=== PATIENT | female | born 1990 | race Caucasian/White ===

== ENCOUNTER 2018-08-18 16:50 | Emergency (ER) | payer MEDICAID, OTHER ==
[~2018-08-18] VITALS: Ht 162.6 cm; Wt 42.6 kg
[2018-08-18 17:34] LABS: Basophils # (auto) 0 uL; Basophils % (auto) 0.6 % (0.0-2.0); Eosinophils # (auto) 0.2 uL; Eosinophils % (auto) 6.4 % (0.0-7.0); Hematocrit 32.2 % (36.0-46.0); Hemoglobin 10.3 g/dL (12.2-16.2); Lymphocytes # (auto) 1.3 uL; Lymphocytes % (auto) 34.5 % (10.0-50.0); Mean Corpuscular Hemoglobin 25.7 pg (28.0-32.0); Mean Corpuscular Hgb Conc. 31.9 g/dL (32.0-36.0); Mean Corpuscular Volume 80.6 fL (80.0-100.0); Monocytes # (auto) 0.3 uL; Monocytes % (auto) 7.2 % (0.0-12.0); Neutrophils # (auto) 1.9 uL; Neutrophils % (auto) 51.3 % (37.0-80.0); Nucleated Red Blood Cells % 0.1 %; Platelet Count (auto) 307 10^3/uL (140-450); Red Blood Cells 3.99 10^6/uL (4.0-5.20); Red Cell Distribution Width 15.1 % (11.8-14.3); White Blood Cell 3.8 10^3/uL (4.4-10.8)
[2018-08-18 17:45] LABS: Albumin 4.1 g/dL (3.4-5.0); Calcium 8.8 mg/dL (8.5-10.1); Potassium 3.4 mmol/L (3.5-5.1)
[2018-08-18 17:50] LABS: Bilirubin, Total 0.2 mg/dL (0.2-1.0); Total Protein 7.3 g/dL (6.4-8.2)
[2018-08-18] MEDS ORDERED: LORazepam 2MG/ML-1ML VIAL IV ONE (19:00)
[2018-08-18] MEDS ORDERED: SODIUM CHLORIDE 0.9% 1,000 ML IV ONE (19:00)
[2018-08-18] MEDS ORDERED: diphenhdrAMINE HCL 50 MG/1 ML VL IV ONE (19:00)
[2018-08-18] MEDS ORDERED: methylPREDNISolone SOD SUCC 125 MG/2 ML VL IV ONE (19:00)
[2018-08-18 19:51] VITALS: BP 99/60
[2018-08-18 20:13] LABS: Urine Bacteria NONE SEEN /hpf (None Seen); Urine Blood 1+ /uL (Negative); Urine Specific Gravity 1.007 (1.001-1.035); Urine WBC 1 /hpf (0 - 5)
[2018-08-18 20:53] LABS: Alcohol, Urine < 3.0 mg/dL (0-5); Amphetamine Screen, Urine NEGATIVE (NEGATIVE); Barbiturate Scree,Urine NEGATIVE (NEGATIVE); Benzodiazephine Screen, Urine NEGATIVE (NEGATIVE); Cannabinoid Screen, Urine NEGATIVE (NEGATIVE); Cocaine Screen, Urine NEGATIVE (NEGATIVE); Opiate Scree,Urine NEGATIVE (NEGATIVE); Phencyclidine Screen, Urine NEGATIVE (NEGATIVE)
== END 2018-08-18 21:42 | disposition home or self-care (01) ==
LOC: ER 16:56
DX: T78.40XA Allergy, unspecified, initial encounter (principal); R55 Syncope and collapse; X58.XXXA Exposure to other specified factors, initial encounter
CPT/HCPCS: 36415; 80053; 80307; 81001; 81025; 85025; 85652; 86141; 96361; 96374; 96375; 99283; J1200; J2060; J2930; J7030

== ENCOUNTER 2020-05-19 11:08 | Observation (INO) | payer MEDICAID ==
[~2020-05-19] VITALS: Ht 162.6 cm; Wt 45.8 kg
[2020-05-19] MEDS ORDERED: LACTATED RINGER'S 1,000 ML IV ONE (11:45)
[2020-05-19] MEDS ORDERED: TERBUTALINE SULFATE 1 MG/ML 1ML VIAL SC ONE (11:47)
[2020-05-19] MEDS: TERBUTALINE SULFATE 1 MG/ML 1ML VIAL SC SCH ×2 (12:20→13:21)
[2020-05-19 12:23] LABS: Amphetamine Screen, Urine NEGATIVE (NEGATIVE); Barbiturate Scree,Urine NEGATIVE (NEGATIVE); Benzodiazephine Screen, Urine NEGATIVE (NEGATIVE); Cannabinoid Screen, Urine NEGATIVE (NEGATIVE); Cocaine Screen, Urine NEGATIVE (NEGATIVE); Opiate Scree,Urine NEGATIVE (NEGATIVE); Phencyclidine Screen, Urine NEGATIVE (NEGATIVE)
[2020-05-19] MEDS ORDERED: LACTATED RINGER'S 1,000 ML IV SCH (13:15)
[2020-05-19 13:43] LABS: Basophils # (auto) 0 10 ^3/uL (0-0.2); Basophils % (auto) 0.3 % (0.0-2.0); Eosinophils # (auto) 0 10 ^3/uL (0-0.8); Monocytes # (auto) 0.3 10 ^3/uL (0-1.3)
[2020-05-19 13:45] LABS: Eosinophils % (auto) 0.2 % (0.0-7.0); Hemoglobin 8.6 g/dL (12.2-16.2); Lymphocytes % (auto) 16.6 % (10.0-50.0); Mean Corpuscular Hemoglobin 27.3 pg (28.0-32.0); Mean Corpuscular Volume 82.6 fL (80.0-100.0); Monocytes % (auto) 4.4 % (0.0-12.0); Neutrophils # (auto) 4.8 10 ^3/uL (1.6-8.6); Neutrophils % (auto) 78.5 % (37.0-80.0); Red Blood Cells 3.14 10^6/uL (4.0-5.20); Red Cell Distribution Width 15.2 % (11.8-14.3); White Blood Cell 6.1 10^3/uL (4.4-10.8)
[2020-05-19 14:02] LABS: Albumin 2.8 g/dL (3.4-5.0); Calcium 8.2 mg/dL (8.5-10.1)
[2020-05-19 14:08] LABS: Bilirubin, Total 0.2 mg/dL (0.2-1.0); Total Protein 6.2 g/dL (6.4-8.2)
[2020-05-19 14:10] LABS: BUN/Creatinine Ratio 8.3; Potassium 2.8 mmol/L (3.5-5.1)
[2020-05-19] MEDS ORDERED: POTASSIUM CHL 20 Meq TABLET PO ONE (14:30)
[2020-05-19] MEDS: POTASSIUM CHL 20MEQ/100ML 100 ML IV SCH ×2 (14:52→16:59)
[2020-05-19] MEDS ORDERED: PREN-96 PO (19:26)
[2020-05-25] MEDS ORDERED: FERR-7 PO (12:59)
== END 2020-05-19 19:47 | disposition home or self-care (01) ==
LOC: LDRP 11:08
PROVIDERS: ADMIT Obstetrics & Gynecology; ATTEND Obstetrics & Gynecology
DX: O62.9 Abnormality of forces of labor, unspecified (principal); O26.893 Other specified pregnancy related conditions, third trimester; R11.0 Nausea; O99.343 Other mental disorders complicating pregnancy, third trimester; F41.9 Anxiety disorder, unspecified; F50.2 Bulimia nervosa; Z3A.30 30 weeks gestation of pregnancy
CPT/HCPCS: 36415; 59025; 76815; 76817; 80053; 80307; 81002; 85025; 94760; 96360; 96361; 96372; G0378; J3105; J3480; 96365; 96366

== ENCOUNTER 2020-05-25 11:16 | Observation (INO) | payer MEDICAID ==
[~2020-05-25 11:16] MED LIST: PREN-96 PO
[2020-05-25] MEDS ORDERED: FERR-7 PO ×2 (12:59)
== END 2020-05-25 13:20 | disposition home or self-care (01) ==
LOC: LDRP 11:16
PROVIDERS: ADMIT Specialist; ATTEND Specialist
DX: O36.5930 Maternal care for other known or suspected poor fetal growth, third trimester, not applicable or unspecified (principal); O99.343 Other mental disorders complicating pregnancy, third trimester; F50.9 Eating disorder, unspecified; Z3A.31 31 weeks gestation of pregnancy
CPT/HCPCS: 59025; 76818; 81002; G0378

== ENCOUNTER 2020-05-29 12:05 | Observation (INO) | payer MEDICAID ==
[~2020-05-29 12:05] MED LIST changes: +FERR-7 PO
== END 2020-05-29 13:08 | disposition home or self-care (01) ==
LOC: LDRP 12:05
PROVIDERS: ADMIT Obstetrics & Gynecology; ATTEND Obstetrics & Gynecology
DX: O26.893 Other specified pregnancy related conditions, third trimester (principal); R63.0 Anorexia; O34.63 Maternal care for abnormality of vagina, third trimester; N89.8 Other specified noninflammatory disorders of vagina; O99.323 Drug use complicating pregnancy, third trimester; F12.90 Cannabis use, unspecified, uncomplicated; Z79.899 Other long term (current) drug therapy; Z3A.31 31 weeks gestation of pregnancy
CPT/HCPCS: 59025; 76818; 81002; G0378

== ENCOUNTER 2020-06-03 12:08 | Observation (INO) | payer MEDICAID ==
[~2020-06-03] VITALS: Ht 162.6 cm; Wt 46.3 kg
[2020-06-03] MEDS ORDERED: BETAMETHASONE ACET (6MG/ML) 5ML VIAL IM SCH (13:30)
[2020-06-03] MEDS ORDERED: TERBUTALINE SULFATE 1 MG/ML 1ML VIAL SC SCH (14:00)
[2020-06-03 14:27] LABS: Potassium 3.4 mmol/L (3.5-5.1)
[2020-06-03 14:29] LABS: BUN/Creatinine Ratio 12.8
== END 2020-06-03 14:56 | disposition home or self-care (01) ==
LOC: LDRP 12:08
PROVIDERS: ADMIT Obstetrics & Gynecology; ATTEND Obstetrics & Gynecology
DX: O60.03 Preterm labor without delivery, third trimester (principal); O99.323 Drug use complicating pregnancy, third trimester; F12.90 Cannabis use, unspecified, uncomplicated; Z3A.32 32 weeks gestation of pregnancy
CPT/HCPCS: 36415; 59025; 80048; 81002; 96372; G0378; J0702; J3105

== ENCOUNTER 2020-06-04 00:09 | Observation (INO) | payer MEDICAID ==
[~2020-06-04] VITALS: Ht 162.6 cm; Wt 46.3 kg
[2020-06-04] MEDS: TERBUTALINE SULFATE 1 MG/ML 1ML VIAL SC SCH ×3 (01:37→02:42)
[2020-06-04] MEDS ORDERED: LACTATED RINGER'S 1,000 ML IV ONE (02:30)
[2020-06-04] MEDS ORDERED: BETAMETHASONE ACET (6MG/ML) 5ML VIAL IM SCH (04:00)
== END 2020-06-04 04:50 | disposition home or self-care (01) ==
LOC: LDRP 00:09
PROVIDERS: ADMIT Obstetrics & Gynecology; ATTEND Obstetrics & Gynecology
DX: O60.03 Preterm labor without delivery, third trimester (principal); O26.873 Cervical shortening, third trimester; O99.323 Drug use complicating pregnancy, third trimester; F12.90 Cannabis use, unspecified, uncomplicated; Z3A.32 32 weeks gestation of pregnancy; Z79.899 Other long term (current) drug therapy
CPT/HCPCS: 59025; 76818; 81002; 82948; 82962; 84112; 94760; 96360; 96361; 96372; G0378; J0702; J3105

== ENCOUNTER 2020-06-08 09:25 | Observation (INO) | payer MEDICAID | END 2020-06-08 10:45 | disposition home or self-care (01) | LOC: LDRP 09:25 | PROVIDERS: ADMIT Obstetrics & Gynecology; ATTEND Obstetrics & Gynecology | DX: O26.893 Other specified pregnancy related conditions, third trimester (principal); F50.00 Anorexia nervosa, unspecified; O36.5930 Maternal care for other known or suspected poor fetal growth, third trimester, not applicable or unspecified; Z3A.33 33 weeks gestation of pregnancy; Z98.891 History of uterine scar from previous surgery; Z79.899 Other long term (current) drug therapy | CPT/HCPCS: 59025; 76818; 81002; G0378 ==

== ENCOUNTER 2020-06-15 09:15 | Observation (INO) | payer MEDICAID ==
[~2020-06-15] VITALS: Ht 162.6 cm; Wt 46.3 kg
== END 2020-06-15 11:40 | disposition home or self-care (01) ==
LOC: LDRP 09:15
PROVIDERS: ADMIT Obstetrics & Gynecology; ATTEND Obstetrics & Gynecology
DX: O60.03 Preterm labor without delivery, third trimester (principal); Z3A.34 34 weeks gestation of pregnancy
CPT/HCPCS: 59025; 76818; 81002; G0378

== ENCOUNTER 2020-06-18 09:16 | Observation (INO) | payer MEDICAID | END 2020-06-18 10:44 | disposition home or self-care (01) | LOC: LDRP 09:16 | PROVIDERS: ADMIT Obstetrics & Gynecology; ATTEND Obstetrics & Gynecology | DX: O60.03 Preterm labor without delivery, third trimester (principal); O34.219 Maternal care for unspecified type scar from previous cesarean delivery; Z3A.34 34 weeks gestation of pregnancy | CPT/HCPCS: 59025; 76818; 81002; G0378 ==

== ENCOUNTER 2020-06-21 02:57 | Observation (INO) | payer MEDICAID ==
[~2020-06-21] VITALS: Ht 162.6 cm; Wt 46.3 kg
[2020-06-21] MEDS ORDERED: LACTATED RINGER'S 1,000 ML IV SCH (03:15)
[2020-06-21] MEDS ORDERED: LACTATED RINGER'S 1,000 ML IV ONE (03:15)
[2020-06-21] MEDS: TERBUTALINE SULFATE 1 MG/ML 1ML VIAL SC SCH ×2 (03:43→04:05)
[2020-06-21 06:44] LABS: Alcohol, Urine < 3.0 mg/dL (0-10); Amphetamine Screen, Urine NEGATIVE (NEGATIVE); Barbiturate Scree,Urine NEGATIVE (NEGATIVE); Benzodiazephine Screen, Urine NEGATIVE (NEGATIVE); Cannabinoid Screen, Urine NEGATIVE (NEGATIVE); Cocaine Screen, Urine NEGATIVE (NEGATIVE); Opiate Scree,Urine NEGATIVE (NEGATIVE); Phencyclidine Screen, Urine NEGATIVE (NEGATIVE)
[2020-06-21] MEDS ORDERED: NIFEdipine 10 MG CAP PO ONE (07:00)
[2020-06-21] MEDS ORDERED: NIF10C PO (08:21)
== END 2020-06-21 08:45 | disposition home or self-care (01) ==
LOC: UNDOADMOB 02:57 → LDRP 02:57 → UNDODISOB 08:45
PROVIDERS: ADMIT Obstetrics & Gynecology; ATTEND Obstetrics & Gynecology
DX: O62.9 Abnormality of forces of labor, unspecified (principal); Z3A.35 35 weeks gestation of pregnancy; Z79.899 Other long term (current) drug therapy
CPT/HCPCS: 59025; 76805; 80307; 81002; 96360; 96361; 96372; G0378; J3105; 94640

== ENCOUNTER 2020-06-25 09:22 | Observation (INO) | payer MEDICAID ==
[~2020-06-25 09:22] MED LIST changes: +NIF10C PO
[2020-06-25] MEDS ORDERED: TERBUTALINE SULFATE 1 MG/ML 1ML VIAL SC ONE (10:52)
[2020-06-25] MEDS ORDERED: TERBUTALINE SULFATE 1 MG/ML 1ML VIAL SC SCH (11:00)
== END 2020-06-25 11:49 | disposition home or self-care (01) ==
LOC: LDRP 09:22
PROVIDERS: ADMIT Obstetrics & Gynecology; ATTEND Obstetrics & Gynecology
DX: O60.03 Preterm labor without delivery, third trimester (principal); O99.343 Other mental disorders complicating pregnancy, third trimester; R63.0 Anorexia; Z3A.35 35 weeks gestation of pregnancy
CPT/HCPCS: 59025; 76818; 81002; 84112; 96372; G0378; J3105; Q0114

== ENCOUNTER 2020-06-27 18:27 | Observation (INO) | payer MEDICAID ==
[2020-06-27] MEDS ORDERED: LACTATED RINGER'S 1,000 ML IV ONE (19:15)
[2020-06-27] MEDS ORDERED: LACTATED RINGER'S 1,000 ML IV SCH (19:15)
[2020-06-27] MEDS ORDERED: TERBUTALINE SULFATE 1 MG/ML 1ML VIAL SC ONE (19:15)
[2020-06-27] MEDS: TERBUTALINE SULFATE 1 MG/ML 1ML VIAL SC SCH ×3 (19:17→20:17)
== END 2020-06-27 21:35 | disposition home or self-care (01) ==
LOC: LDRP 18:27
PROVIDERS: ADMIT Obstetrics & Gynecology; ATTEND Obstetrics & Gynecology
DX: O60.03 Preterm labor without delivery, third trimester (principal); Z98.891 History of uterine scar from previous surgery; Z3A.35 35 weeks gestation of pregnancy; Z79.899 Other long term (current) drug therapy
CPT/HCPCS: 59025; 76815; 81002; 94760; 96360; 96361; 96372; G0378; J3105

== ENCOUNTER 2020-07-03 01:50 | Observation (INO) | payer MEDICAID ==
[~2020-07-03] VITALS: Ht 162.6 cm; Wt 48.5 kg
[2020-07-03] MEDS ORDERED: TERBUTALINE SULFATE 1 MG/ML 1ML VIAL SC SCH (02:00)
[2020-07-03] MEDS ORDERED: LACTATED RINGER'S 1,000 ML IV ONE (02:00)
[2020-07-03] MEDS ORDERED: LACTATED RINGER'S 1,000 ML IV SCH (02:00)
[2020-07-03] MEDS ORDERED: NIFEdipine 10 MG CAP PO ONE (03:00)
[2020-07-03] MEDS ORDERED: NIFEdipine 10 MG CAP ONE (03:10)
== END 2020-07-03 04:09 | disposition home or self-care (01) ==
LOC: LDRP 01:50
PROVIDERS: ADMIT Obstetrics & Gynecology; ATTEND Obstetrics & Gynecology
DX: O62.9 Abnormality of forces of labor, unspecified (principal); Z3A.36 36 weeks gestation of pregnancy
CPT/HCPCS: 59025; 81002; 96360; 96361; 96372; G0378; J3105

== ENCOUNTER 2020-07-06 22:30 | Observation (INO) | payer MEDICAID | END 2020-07-07 01:05 | disposition home or self-care (01) | LOC: LDRP 22:30 | PROVIDERS: ADMIT Specialist; ATTEND Specialist | DX: O62.9 Abnormality of forces of labor, unspecified (principal); Z3A.37 37 weeks gestation of pregnancy | CPT/HCPCS: 59025; 81002; G0378 ==

== ENCOUNTER 2020-07-15 06:03 | Observation (INO) | payer MEDICAID ==
[~2020-07-15 06:03] MED LIST changes: -NIF10C PO
[2020-07-15] MEDS ORDERED: LACTATED RINGER'S 1,000 ML IV ONE (07:00)
== END 2020-07-15 08:46 | disposition home or self-care (01) ==
LOC: LDRP 06:03
PROVIDERS: ADMIT Obstetrics & Gynecology; ATTEND Obstetrics & Gynecology
DX: O62.9 Abnormality of forces of labor, unspecified (principal); O34.219 Maternal care for unspecified type scar from previous cesarean delivery; Z3A.38 38 weeks gestation of pregnancy
CPT/HCPCS: 59025; 81002; 96360; G0378

== ENCOUNTER 2020-07-16 02:21 | Inpatient (IN) | payer MEDICAID ==
[~2020-07-16] VITALS: Ht 162.6 cm; Wt 49.4 kg
[2020-07-16] VITALS (18 sets, daily range): BP systolic 91–109; BP diastolic 52–66
[2020-07-16] MEDS ORDERED: LACTATED RINGER'S 1,000 ML IV SCH ×2 (02:45→08:45)
[2020-07-16] MEDS ORDERED: LACTATED RINGER'S 1,000 ML IV ONE (02:45)
[2020-07-16] MEDS ORDERED: SODIUM CITR/CITRIC ACID ORAL SOLN 30 ML PO ONE (02:45)
[2020-07-16] MEDS ORDERED: METOCLOPRAMIDE HCL 5MG/ml INJ 2ml VIAL IV ONE (02:45)
[2020-07-16] MEDS ORDERED: ceFAZolin 1GM/50ML 50 ML IV ONE (03:15)
[2020-07-16] MEDS ORDERED: TERBUTALINE SULFATE 1 MG/ML 1ML VIAL SC ONE (04:15)
[2020-07-16 04:27] LABS: Basophils # (auto) 0 10 ^3/uL (0-0.2); Eosinophils # (auto) 0.1 10 ^3/uL (0-0.8); Eosinophils % (auto) 1.2 % (0.0-7.0); Lymphocytes # (auto) 1.3 10 ^3/uL (0.4-5.4); Monocytes # (auto) 0.5 10 ^3/uL (0-1.3); Red Cell Distribution Width 16.4 % (11.8-14.3)
[2020-07-16 04:28] LABS: Basophils % (auto) 0.5 % (0.0-2.0); Hematocrit 24.5 % (36.0-46.0); Hemoglobin 8.1 g/dL (12.2-16.2); Lymphocytes % (auto) 22.1 % (10.0-50.0); Mean Corpuscular Hemoglobin 25.8 pg (28.0-32.0); Mean Corpuscular Hgb Conc. 32.8 g/dL (32.0-36.0); Mean Corpuscular Volume 78.4 fL (80.0-100.0); Monocytes % (auto) 8.4 % (0.0-12.0); Neutrophils % (auto) 67.8 % (37.0-80.0); Nucleated Red Blood Cells % 0.1 %; Platelet Count (auto) 192 10^3/uL (140-450); Red Blood Cells 3.13 10^6/uL (4.0-5.20); White Blood Cell 5.9 10^3/uL (4.4-10.8)
[2020-07-16 04:38] LABS: Albumin 2.4 g/dL (3.4-5.0); Calcium 8.2 mg/dL (8.5-10.1); Potassium 3.8 mmol/L (3.5-5.1)
[2020-07-16 04:41] LABS: Bilirubin, Total 0.2 mg/dL (0.2-1.0); Total Protein 5.8 g/dL (6.4-8.2)
[2020-07-16 04:44] LABS: INR 0.93 (0.9-1.15); Partial Thromboplastin Time 27.8 sec (23.0-31.2)
[2020-07-16 04:54] LABS: Urine Bacteria FEW /hpf (None Seen); Urine Blood 2+ /uL (Negative); Urine Specific Gravity 1.008 (1.001-1.035); Urine WBC 1 /hpf (0 - 5)
[2020-07-16] MEDS ORDERED: DERMOPLAST 60ML BOTTLE TOP ONE (05:03)
[2020-07-16 05:15] LABS: Alcohol, Urine < 3.0 mg/dL (0-10); Amphetamine Screen, Urine NEGATIVE (NEGATIVE); Barbiturate Scree,Urine NEGATIVE (NEGATIVE); Benzodiazephine Screen, Urine NEGATIVE (NEGATIVE); Cannabinoid Screen, Urine NEGATIVE (NEGATIVE); Cocaine Screen, Urine NEGATIVE (NEGATIVE); Opiate Scree,Urine NEGATIVE (NEGATIVE); Phencyclidine Screen, Urine NEGATIVE (NEGATIVE)
[2020-07-16] MEDS ORDERED: TETRACAINE 1% INJ 2 ML VIAL IJ ONE (07:02)
[2020-07-16] MEDS ORDERED: MORPHINE SULF(PF) 0.5MG/ML 10ML VIAL ONE (07:08)
[2020-07-16] MEDS ORDERED: oxyTOCIN 10 UNIT/ML 10ML VIAL ONE (07:24)
[2020-07-16] MEDS ORDERED: ePHEDrine SULFATE 50 MG/ML AMP IV ONE (07:31)
[2020-07-16] MEDS ORDERED: MIDAZOLAM HCL 1MG/1ML-2 ML VIAL ONE (08:16)
[2020-07-16] MEDS ORDERED: fentaNYL CITRATE 100 MCG/2 ML VL ONE (08:16)
[2020-07-16] MEDS ORDERED: ONDANSETRON HCL 4 MG/2 ML VIAL ONE (08:43)
[2020-07-16] MEDS ORDERED: GUM (CHEWING) 1 GUM CHEW CHEW ONE (08:45)
[2020-07-16] MEDS ORDERED: KETOROLAC TROMETH 30 MG/ML 1ML VIAL IV PRN (08:45)
[2020-07-16] MEDS ORDERED: HYDROmorphone HCL 2 MG/ML VL IV PRN (08:45)
[2020-07-16] MEDS ORDERED: ceFAZolin 1GM/50ML 50 ML IV SCH (08:45)
[2020-07-16] MEDS ORDERED: ONDANSETRON HCL 4 MG/2 ML VIAL IV PRN ×2 (08:45→09:00)
[2020-07-16] MEDS ORDERED: NALOXONE HCL 0.4 MG/ML VIAL IV PRN (09:00)
[2020-07-16] MEDS ORDERED: diphenhdrAMINE HCL 50 MG/1 ML VL IV PRN (09:00)
[2020-07-16] MEDS: ceFAZolin 1GM/50ML 50 ML IV SCH ×2 (15:16→21:16)
[2020-07-17] VITALS (11 sets, daily range): BP systolic 93–105; BP diastolic 55–70
[2020-07-17] MEDS: ceFAZolin 1GM/50ML 50 ML IV SCH (04:49)
[2020-07-17] MEDS ORDERED: HYDROcodone-ACET 5/325MG TAB PO PRN (07:00)
[2020-07-17] MEDS ORDERED: BISACODYL 10 MG RECT SUPP PR PRN (07:00)
[2020-07-17 07:06] LABS: RPR Non Reactive (Non Reactive)
[2020-07-17 07:27] LABS: Basophils # (auto) 0 10 ^3/uL (0-0.2); Eosinophils # (auto) 0 10 ^3/uL (0-0.8); Hemoglobin 9.2 g/dL (12.2-16.2); Neutrophils # (auto) 5.4 10 ^3/uL (1.6-8.6)
[2020-07-17 07:29] LABS: Basophils % (auto) 0.3 % (0.0-2.0); Eosinophils % (auto) 0.6 % (0.0-7.0); Hematocrit 28.3 % (36.0-46.0); Lymphocytes # (auto) 0.8 10 ^3/uL (0.4-5.4); Lymphocytes % (auto) 11.5 % (10.0-50.0); Mean Corpuscular Hemoglobin 25.4 pg (28.0-32.0); Mean Corpuscular Hgb Conc. 32.5 g/dL (32.0-36.0); Mean Corpuscular Volume 78.2 fL (80.0-100.0); Monocytes # (auto) 0.5 10 ^3/uL (0-1.3); Monocytes % (auto) 7.2 % (0.0-12.0); Neutrophils % (auto) 80.4 % (37.0-80.0); Platelet Count (auto) 186 10^3/uL (140-450); Red Blood Cells 3.61 10^6/uL (4.0-5.20); Red Cell Distribution Width 16.3 % (11.8-14.3); White Blood Cell 6.7 10^3/uL (4.4-10.8)
[2020-07-17] MEDS: DOCUSATE SOD 100 MG CAP PO SCH ×2 (08:34→21:26)
[2020-07-17] MEDS: HYDROcodone-ACET 5/325MG TAB PO PRN ×3 (08:34→18:45)
[2020-07-17] MEDS: FERROUS SULFATE 325 MG TAB PO SCH ×2 (08:34→21:27)
[2020-07-17] MEDS: SIMETHICONE 80 MG CHEWABLE TABLET PO SCH ×3 (15:52→21:27)
[2020-07-17] MEDS: IBUPROFEN 800 MG TAB PO PRN ×2 (15:52→21:27)
[2020-07-18 03:30] VITALS: BP 98/68
[2020-07-18] MEDS: HYDROcodone-ACET 5/325MG TAB PO PRN ×2 (04:55→09:37)
[2020-07-18] MEDS: SIMETHICONE 80 MG CHEWABLE TABLET PO SCH ×2 (06:41→15:01)
[2020-07-18] MEDS: IBUPROFEN 800 MG TAB PO PRN ×3 (06:42→23:49)
[2020-07-18 07:00] VITALS: BP 101/73
[2020-07-18] MEDS: DOCUSATE SOD 100 MG CAP PO SCH (09:37)
[2020-07-18] MEDS: FERROUS SULFATE 325 MG TAB PO SCH (09:37)
[2020-07-18 11:00] VITALS: BP 103/66
[2020-07-18 15:00] VITALS: BP 106/69
[2020-07-18 19:14] VITALS: BP 108/77
[2020-07-18 23:09] VITALS: BP 104/71
[2020-07-19 03:06] VITALS: BP 109/70
[2020-07-19] MEDS: HYDROcodone-ACET 5/325MG TAB PO PRN (05:01)
[2020-07-19 07:02] VITALS: BP 102/73
== END 2020-07-19 09:30 | disposition home or self-care (01) | DRG 540 ==
LOC: OBSVTOIN 02:21 → LDRP 02:21
PROVIDERS: ADMIT Specialist; ATTEND Specialist
PROC: 30233N1 Transfusion of Nonautologous Red Blood Cells into Peripheral Vein, Percutaneous Approach (ICD-10-PCS; 2020-07-16)
PROC: 10D00Z1 Extraction of Products of Conception, Low, Open Approach (ICD-10-PCS; principal; 2020-07-16 07:31)
DX: O34.211 Maternal care for low transverse scar from previous cesarean delivery (principal); Z20.822 Contact with and (suspected) exposure to COVID-19; Z37.0 Single live birth; Z3A.38 38 weeks gestation of pregnancy; Z86.59 Personal history of other mental and behavioral disorders; Z88.8 Allergy status to other drugs, medicaments and biological substances; O99.344 Other mental disorders complicating childbirth; Z91.018 Allergy to other foods; F41.9 Anxiety disorder, unspecified
CPT/HCPCS: 36415; 59025; 80053; 80307; 81001; 81002; 84112; 85025; 85610; 85730; 86592; 86850; 86900; 86901; 86920; 87426; 94760; 94762; 96360; 96361; 96374; 96375; G0378; J0690; J1885; J2250; J2405; J2590

== ENCOUNTER 2021-05-31 21:14 | Emergency (ER) | payer MEDICAID ==
[~2021-05-31] VITALS: Ht 162.6 cm; Wt 44.5 kg
[2021-05-31 23:56] LABS: Basophils # (auto) 0 10 ^3/uL (0-0.2); Eosinophils # (auto) 0 10 ^3/uL (0-0.8); Hemoglobin 10.4 g/dL (12.2-16.2); Lymphocytes # (auto) 1.2 10 ^3/uL (0.4-5.4); Monocytes # (auto) 0.3 10 ^3/uL (0-1.3); Nucleated Red Blood Cells % 0.1 %; Red Cell Distribution Width 14.7 % (11.8-14.3)
[2021-05-31 23:58] LABS: Basophils % (auto) 0.6 % (0.0-2.0); Hematocrit 32.1 % (36.0-46.0); Lymphocytes % (auto) 31.9 % (10.0-50.0); Mean Corpuscular Hemoglobin 25.9 pg (28.0-32.0); Mean Corpuscular Hgb Conc. 32.3 g/dL (32.0-36.0); Mean Corpuscular Volume 80.3 fL (80.0-100.0); Monocytes % (auto) 6.9 % (0.0-12.0); Neutrophils # (auto) 2.3 10 ^3/uL (1.6-8.6); Neutrophils % (auto) 59.6 % (37.0-80.0); White Blood Cell 3.9 10^3/uL (4.4-10.8)
[2021-06-01 00:20] LABS: Calcium 9.2 mg/dL (8.5-10.1); Potassium 3.9 mmol/L (3.5-5.1)
[2021-06-01 00:23] LABS: BUN/Creatinine Ratio 21.8
[2021-06-01 00:26] LABS: Bilirubin, Total 0.2 mg/dL (0.2-1.0)
[2021-06-01 01:59] LABS: Urine Bacteria NONE SEEN /hpf (None Seen); Urine Blood Negative /uL (Negative); Urine Specific Gravity 1.015 (1.001-1.035); Urine WBC 1 /hpf (0 - 5)
[2021-06-01 02:09] LABS: Alcohol, Urine < 3.0 mg/dL (0-10); Amphetamine Screen, Urine NEGATIVE (NEGATIVE); Barbiturate Scree,Urine NEGATIVE (NEGATIVE); Benzodiazephine Screen, Urine NEGATIVE (NEGATIVE); Cocaine Screen, Urine NEGATIVE (NEGATIVE); Opiate Scree,Urine NEGATIVE (NEGATIVE); Phencyclidine Screen, Urine NEGATIVE (NEGATIVE)
[2021-06-01 02:28] LABS: Cannabinoid Screen, Urine NEGATIVE (NEGATIVE)
[2021-06-01 02:30] VITALS: BP 97/39
== END 2021-06-01 02:32 | disposition home or self-care (01) ==
LOC: ER 21:18
DX: F41.9 Anxiety disorder, unspecified (principal); Z86.2 Personal history of diseases of the blood and blood-forming organs and certain disorders involving the immune mechanism; Z79.899 Other long term (current) drug therapy; Z91.018 Allergy to other foods
CPT/HCPCS: 36415; 80053; 80307; 81001; 81025; 84702; 85025; 93005

== ENCOUNTER 2021-07-30 16:41 | Emergency (ER) | payer MEDICAID ==
[~2021-07-30] VITALS: Ht 162.6 cm; Wt 44.5 kg
[2021-07-30] MEDS ORDERED: SODIUM CHLORIDE 0.9% 1,000 ML IV ONE (17:00)
[2021-07-30 18:02] LABS: Basophils # (auto) 0 10 ^3/uL (0-0.2); Basophils % (auto) 0.7 % (0.0-2.0); Eosinophils # (auto) 0.1 10 ^3/uL (0-0.8); Eosinophils % (auto) 1.8 % (0.0-7.0); Hemoglobin 10.6 g/dL (12.2-16.2); Lymphocytes # (auto) 1.4 10 ^3/uL (0.4-5.4); Lymphocytes % (auto) 30.8 % (10.0-50.0); Mean Corpuscular Hemoglobin 24.8 pg (28.0-32.0); Mean Corpuscular Hgb Conc. 32.1 g/dL (32.0-36.0); Mean Corpuscular Volume 77.2 fL (80.0-100.0); Monocytes # (auto) 0.3 10 ^3/uL (0-1.3); Monocytes % (auto) 7.3 % (0.0-12.0); Neutrophils # (auto) 2.7 10 ^3/uL (1.6-8.6); Neutrophils % (auto) 59.4 % (37.0-80.0); Nucleated Red Blood Cells % 0.1 %; Red Blood Cells 4.27 10^6/uL (4.0-5.20); Red Cell Distribution Width 14.8 % (11.8-14.3); White Blood Cell 4.6 10^3/uL (4.4-10.8)
[2021-07-30 18:03] LABS: Urine Bacteria NONE SEEN /hpf (None Seen); Urine Blood Negative /uL (Negative); Urine Specific Gravity 1.004 (1.001-1.035); Urine WBC 1 /hpf (0 - 5)
[2021-07-30 18:04] LABS: Alanine Aminotransferase 26 U/L (13-56); Albumin 4.1 g/dL (3.4-5.0); Anion Gap 3 (5-15); Aspartate Aminotransferase 16 U/L (15-37); BUN/Creatinine Ratio 24.2; Blood Urea Nitrogen 15 mg/dL (7-18); Calcium 8.8 mg/dL (8.5-10.1); Carbon Dioxide 27 mmol/L (21-32); Chloride 109 mmol/L (98-107); GFR African American 145 mL/min; GFR Non-African American 120 mL/min; Glucose 87 mg/dL (74-106); Potassium 3.5 mmol/L (3.5-5.1); Sodium 139 mmol/L (136-145)
[2021-07-30 18:09] LABS: Alkaline Phosphatase 47 U/L (45-117); Bilirubin, Total 0.2 mg/dL (0.2-1.0); Total Protein 7.5 g/dL (6.4-8.2)
[2021-07-30] MEDS ORDERED: MECLIZINE HCL 25 MG TAB PO ONE (18:30)
[2021-07-30] MEDS ORDERED: MECL25CH38 PO (20:49)
[2021-07-31 01:29] VITALS: BP 91/47
== END 2021-07-31 03:31 | disposition home or self-care (01) ==
LOC: EDBD 16:41 → ER 16:41
DX: F41.9 Anxiety disorder, unspecified (principal); R42 Dizziness and giddiness; Z86.2 Personal history of diseases of the blood and blood-forming organs and certain disorders involving the immune mechanism; Z79.899 Other long term (current) drug therapy; Z88.8 Allergy status to other drugs, medicaments and biological substances; Z91.018 Allergy to other foods; Z20.822 Contact with and (suspected) exposure to COVID-19
CPT/HCPCS: 36415; 70450; 80053; 81001; 83605; 84484; 84702; 85025; 87426; 93005; 96360; 96361; 99285; J7030; J8597

== ENCOUNTER 2021-09-23 08:26 | Inpatient (IN) | payer MEDICAID ==
[~2021-09-23] VITALS: Ht 162.6 cm; Wt 43.5 kg
[~2021-09-23 08:26] MED LIST changes: +MECL25CH38 PO
[2021-09-23] MEDS ORDERED: MORPHINE SULFATE 4 MG/ML SYR/VIAL IV ONE (08:45)
[2021-09-23] MEDS ORDERED: SODIUM CHLORIDE 0.9% 1,000 ML IVB ONE (08:45)
[2021-09-23] MEDS ORDERED: ONDANSETRON HCL 4 MG/2 ML VIAL IV ONE (08:45)
[2021-09-23 08:55] LABS: Urine Bacteria NONE SEEN /hpf (None Seen); Urine Blood Negative /uL (Negative); Urine Mucus FEW (None Seen); Urine Specific Gravity 1.022 (1.001-1.035); Urine WBC 2 /hpf (0 - 5)
[2021-09-23 09:15] LABS: Basophils # (auto) 0 10 ^3/uL (0-0.2); Basophils % (auto) 0.4 % (0.0-2.0); Eosinophils # (auto) 0.1 10 ^3/uL (0-0.8); Hemoglobin 10.5 g/dL (12.2-16.2); Monocytes # (auto) 0.2 10 ^3/uL (0-1.3); White Blood Cell 7.8 10^3/uL (4.4-10.8)
[2021-09-23] MEDS ORDERED: MORPHINE SULFATE INJECTION 2 MG/ML SYRG IV ONE (09:15)
[2021-09-23 09:18] LABS: Hematocrit 32.5 % (36.0-46.0); Lymphocytes # (auto) 0.8 10 ^3/uL (0.4-5.4); Lymphocytes % (auto) 10.8 % (10.0-50.0); Mean Corpuscular Hemoglobin 23.8 pg (28.0-32.0); Mean Corpuscular Hgb Conc. 32.3 g/dL (32.0-36.0); Mean Corpuscular Volume 73.7 fL (80.0-100.0); Monocytes % (auto) 2.5 % (0.0-12.0); Neutrophils # (auto) 6.7 10 ^3/uL (1.6-8.6); Neutrophils % (auto) 85.3 % (37.0-80.0); Red Blood Cells 4.41 10^6/uL (4.0-5.20)
[2021-09-23 09:30] LABS: Calcium 8.6 mg/dL (8.5-10.1); Potassium 3.4 mmol/L (3.5-5.1)
[2021-09-23 09:31] LABS: BUN/Creatinine Ratio 17.1
[2021-09-23 09:34] LABS: Bilirubin, Total 0.3 mg/dL (0.2-1.0); Total Protein 7.3 g/dL (6.4-8.2)
[2021-09-23] MEDS ORDERED: HYDROcodone-ACET 5/325MG TAB PO PRN (11:15)
[2021-09-23] MEDS ORDERED: ACETAMINOPHEN 325 MG TAB PO PRN (11:15)
[2021-09-23] MEDS ORDERED: SODIUM CHLORIDE 0.9% 1,000 ML IV SCH (11:15)
[2021-09-23] MEDS ORDERED: MORPHINE SULFATE INJECTION 2 MG/ML SYRG IV PRN (11:15)
[2021-09-23] MEDS ORDERED: ONDANSETRON HCL 4 MG/2 ML VIAL IV PRN (11:15)
[2021-09-23] MEDS ORDERED: [UNRECOGNIZED DRUG - CODE] PO (16:59)
[2021-09-23] MEDS ORDERED: MAGN400T40 PO (16:59)
[2021-09-23 17:00] VITALS: BP 80/43
[2021-09-24] MEDS ORDERED: ENOXAPARIN SOD 40 MG/0.4 ML SYRINGE SC SCH (10:00)
== END 2021-09-23 19:10 | disposition left against medical advice (07) ==
LOC: ER 08:26 → OVERFLOW 11:08 → WEST WING 16:34
PROVIDERS: ADMIT Internal Medicine; ATTEND Internal Medicine
DX: K80.00 Calculus of gallbladder with acute cholecystitis without obstruction (principal); F12.90 Cannabis use, unspecified, uncomplicated; Z20.822 Contact with and (suspected) exposure to COVID-19; Z53.29 Procedure and treatment not carried out because of patient's decision for other reasons; F41.9 Anxiety disorder, unspecified; G40.909 Epilepsy, unspecified, not intractable, without status epilepticus; Z80.0 Family history of malignant neoplasm of digestive organs; Z83.2 Family history of diseases of the blood and blood-forming organs and certain disorders involving the immune mechanism; Z98.891 History of uterine scar from previous surgery; Z88.8 Allergy status to other drugs, medicaments and biological substances; Z91.018 Allergy to other foods
CPT/HCPCS: 36415; 74176; 76705; 80053; 81001; 81025; 83690; 85025; 96361; 96374; 96375; 96376; G0378; J2405

== ENCOUNTER 2021-11-01 20:28 | Emergency (ER) | payer MEDICAID ==
[~2021-11-01] VITALS: Ht 162.6 cm; Wt 41.7 kg
[2021-11-01 20:28] VITALS: BP 89/48
[~2021-11-01 20:28] MED LIST changes: -FERR-7 PO; +MAGN400T40 PO; -MECL25CH38 PO; -PREN-96 PO; +[UNRECOGNIZED DRUG - CODE] PO
[2021-11-01 22:17] LABS: Basophils # (auto) 0 10 ^3/uL (0-0.2); Eosinophils # (auto) 0.1 10 ^3/uL (0-0.8); Lymphocytes # (auto) 1.6 10 ^3/uL (0.4-5.4); Monocytes # (auto) 0.3 10 ^3/uL (0-1.3); White Blood Cell 4.3 10^3/uL (4.4-10.8)
[2021-11-01 22:22] LABS: Basophils % (auto) 0.6 % (0.0-2.0); Eosinophils % (auto) 1.9 % (0.0-7.0); Hematocrit 31.9 % (36.0-46.0); Hemoglobin 9.7 g/dL (12.2-16.2); Lymphocytes % (auto) 37.9 % (10.0-50.0); Mean Corpuscular Hemoglobin 22.2 pg (28.0-32.0); Mean Corpuscular Hgb Conc. 30.6 g/dL (32.0-36.0); Mean Corpuscular Volume 72.8 fL (80.0-100.0); Neutrophils # (auto) 2.3 10 ^3/uL (1.6-8.6); Neutrophils % (auto) 53.6 % (37.0-80.0); Nucleated Red Blood Cells % 0.1 %; Red Blood Cells 4.38 10^6/uL (4.0-5.20); Red Cell Distribution Width 16.2 % (11.8-14.3)
[2021-11-01 22:29] LABS: Urine Bacteria NONE SEEN /hpf (None Seen); Urine Blood Negative /uL (Negative); Urine Specific Gravity 1.007 (1.001-1.035); Urine WBC <1 /hpf (0 - 5)
[2021-11-01 22:36] LABS: Albumin 4.5 g/dL (3.4-5.0); BUN/Creatinine Ratio 18.2; Potassium 3.4 mmol/L (3.5-5.1)
[2021-11-01 22:38] LABS: Bilirubin, Total 0.4 mg/dL (0.2-1.0); Total Protein 7.7 g/dL (6.4-8.2)
== END 2021-11-02 04:56 | disposition left against medical advice (07) ==
LOC: ER 20:28
DX: E03.9 Hypothyroidism, unspecified (principal); Z53.29 Procedure and treatment not carried out because of patient's decision for other reasons; Z20.822 Contact with and (suspected) exposure to COVID-19; Z88.8 Allergy status to other drugs, medicaments and biological substances; Z91.018 Allergy to other foods
CPT/HCPCS: 36415; 70450; 71045; 80053; 81001; 84443; 85025

== ENCOUNTER → 2022-03-18 | Emergency (ER) | payer MEDICAID ==
[~2022-03-18] VITALS: Ht 162.6 cm; Wt 42.6 kg
[2022-03-18 13:21] VITALS: BP 96/60
[2022-03-18 13:28] LABS: Basophils # (auto) 0 10 ^3/uL (0-0.2); Monocytes # (auto) 0.3 10 ^3/uL (0-1.3); White Blood Cell 3.7 10^3/uL (4.4-10.8)
[2022-03-18 13:30] LABS: Eosinophils # (auto) 0.2 10 ^3/uL (0-0.8); Eosinophils % (auto) 4.2 % (0.0-7.0); Hematocrit 29.5 % (36.0-46.0); Lymphocytes # (auto) 1.2 10 ^3/uL (0.4-5.4); Lymphocytes % (auto) 32.3 % (10.0-50.0); Mean Corpuscular Hemoglobin 21.4 pg (28.0-32.0); Mean Corpuscular Hgb Conc. 30.5 g/dL (32.0-36.0); Mean Corpuscular Volume 70.1 fL (80.0-100.0); Monocytes % (auto) 8.6 % (0.0-12.0); Neutrophils % (auto) 53.9 % (37.0-80.0); Red Cell Distribution Width 16.8 % (11.8-14.3)
[2022-03-18 13:45] LABS: Albumin 3.9 g/dL (3.4-5.0); Calcium 8.6 mg/dL (8.5-10.1); Potassium 3.6 mmol/L (3.5-5.1)
[2022-03-18 13:48] LABS: BUN/Creatinine Ratio 19.6; Bilirubin, Total 0.3 mg/dL (0.2-1.0); Total Protein 7.2 g/dL (6.4-8.2)
[2022-03-18 15:24] LABS: Urine WBC None Seen /hpf (0 - 5)
[2022-03-18 15:36] LABS: Urine Bacteria NONE SEEN /hpf (None Seen); Urine Blood Negative /uL (Negative); Urine Specific Gravity 1.004 (1.001-1.035)
== END | disposition left against medical advice (07) ==
LOC: ER 12:35
DX: R53.1 Weakness (principal); Z53.21 Procedure and treatment not carried out due to patient leaving prior to being seen by health care provider
CPT/HCPCS: 36415; 80053; 81001; 81025; 85025

== ENCOUNTER 2022-04-09 14:12 | Inpatient (IN) | payer MEDICAID ==
[~2022-04-09] VITALS: Ht 172.7 cm; Wt 46.2 kg
[2022-04-09] MEDS ORDERED: LEVE500T32 PO (15:18)
[2022-04-09 15:37] LABS: Basophils # (auto) 0 10 ^3/uL (0-0.2); Basophils % (auto) 0.9 % (0.0-2.0); Eosinophils % (auto) 1.8 % (0.0-7.0); Hemoglobin 7.4 g/dL (12.2-16.2); Lymphocytes # (auto) 0.8 10 ^3/uL (0.4-5.4); Neutrophils # (auto) 1.8 10 ^3/uL (1.6-8.6); Nucleated Red Blood Cells % 0.1 %; White Blood Cell 2.8 10^3/uL (4.4-10.8)
[2022-04-09 15:38] LABS: Eosinophils # (auto) 0.1 10 ^3/uL (0-0.8); Hematocrit 25.5 % (36.0-46.0); Mean Corpuscular Hemoglobin 20.1 pg (28.0-32.0); Mean Corpuscular Hgb Conc. 28.9 g/dL (32.0-36.0); Mean Corpuscular Volume 69.5 fL (80.0-100.0); Monocytes # (auto) 0.2 10 ^3/uL (0-1.3); Monocytes % (auto) 5.7 % (0.0-12.0); Neutrophils % (auto) 63.6 % (37.0-80.0); Red Blood Cells 3.67 10^6/uL (4.0-5.20); Red Cell Distribution Width 16.9 % (11.8-14.3)
[2022-04-09 15:55] LABS: Albumin 3.3 g/dL (3.4-5.0); Calcium 7.4 mg/dL (8.5-10.1); Potassium 3.2 mmol/L (3.5-5.1)
[2022-04-09 15:56] LABS: Bilirubin, Total 0.2 mg/dL (0.2-1.0)
[2022-04-09 18:54] LABS: Alcohol, Urine < 3.0 mg/dL (0-10); Amphetamine Screen, Urine NEGATIVE (NEGATIVE); Barbiturate Scree,Urine NEGATIVE (NEGATIVE); Benzodiazephine Screen, Urine NEGATIVE (NEGATIVE); Cannabinoid Screen, Urine NEGATIVE (NEGATIVE); Cocaine Screen, Urine NEGATIVE (NEGATIVE); Opiate Scree,Urine NEGATIVE (NEGATIVE); Phencyclidine Screen, Urine NEGATIVE (NEGATIVE)
[2022-04-09] MEDS ORDERED: SODIUM CHLORIDE 0.9% 500 ML IV ONE (21:30)
[2022-04-09] MEDS ORDERED: LORazepam 2MG/ML-1ML VIAL IV PRN (21:30)
[2022-04-09] MEDS ORDERED: ACETAMINOPHEN 325 MG TAB PO PRN (21:30)
[2022-04-09] MEDS ORDERED: TEMAZEPAM 15 MG CAP PO PRN (21:30)
[2022-04-09] MEDS ORDERED: POTASSIUM CHL 20 Meq TABLET PO ONE (21:30)
[2022-04-09] MEDS ORDERED: ONDANSETRON HCL 4 MG/2 ML VIAL IV PRN (21:30)
[2022-04-10] MEDS ORDERED: SODIUM CHLORIDE 0.9% 1,000 ML IV ONE (03:30)
[2022-04-10] MEDS ORDERED: PHENYLEPHRINE IV 250 ML IV ONE (03:58)
[2022-04-10 05:21] LABS: Basophils # (auto) 0 10 ^3/uL (0-0.2); Basophils % (auto) 0.9 % (0.0-2.0); Eosinophils # (auto) 0.1 10 ^3/uL (0-0.8); Eosinophils % (auto) 3.8 % (0.0-7.0); Lymphocytes # (auto) 1.7 10 ^3/uL (0.4-5.4); Monocytes # (auto) 0.3 10 ^3/uL (0-1.3); Neutrophils # (auto) 1.6 10 ^3/uL (1.6-8.6); Red Cell Distribution Width 17.3 % (11.8-14.3); White Blood Cell 3.7 10^3/uL (4.4-10.8)
[2022-04-10 05:24] LABS: Hematocrit 23.9 % (36.0-46.0); Hemoglobin 7.1 g/dL (12.2-16.2); Lymphocytes % (auto) 46.1 % (10.0-50.0); Mean Corpuscular Hemoglobin 20.9 pg (28.0-32.0); Mean Corpuscular Hgb Conc. 29.8 g/dL (32.0-36.0); Monocytes % (auto) 7.2 % (0.0-12.0); Nucleated Red Blood Cells % 0.1 %; Red Blood Cells 3.42 10^6/uL (4.0-5.20)
[2022-04-10 06:13] LABS: Anion Gap 7 (5-15); BUN/Creatinine Ratio 16.3; Blood Urea Nitrogen 8 mg/dL (7-18); Calcium 7.6 mg/dL (8.5-10.1); Carbon Dioxide 21 mmol/L (21-32); Chloride 118 mmol/L (98-107); GFR African American 191 mL/min; GFR Non-African American 158 mL/min; Glucose 83 mg/dL (74-106); Potassium 4.3 mmol/L (3.5-5.1); Sodium 146 mmol/L (136-145)
[2022-04-10] MEDS: FERROUS SULFATE 325mg EC TAB PO SCH (08:22)
[2022-04-10] MEDS ORDERED: LORazepam 2MG/ML-1ML VIAL IV PRN (09:45)
[2022-04-10] MEDS: PHENYLEPHRINE IV 250 ML IV SCH ×2 (11:02→12:20)
[2022-04-10] MEDS: levETIRAcetam 500 MG TAB PO SCH ×2 (11:03→22:47)
[2022-04-10 13:58] LABS: % Iron Saturation 1.6 % (15-50)
[2022-04-10 14:06] LABS: % Iron Saturation 3.1 % (15-50)
[2022-04-10 17:38] VITALS: BP 128/59
[2022-04-10 19:28] LABS: % Iron Saturation 2.6 % (15-50)
[2022-04-10 22:00] VITALS: BP 128/59
[2022-04-11 05:00] VITALS: BP 96/54
[2022-04-11 05:24] LABS: Basophils # (auto) 0 10 ^3/uL (0-0.2); Eosinophils # (auto) 0.2 10 ^3/uL (0-0.8); Hemoglobin 7.9 g/dL (12.2-16.2); Monocytes # (auto) 0.2 10 ^3/uL (0-1.3); Red Cell Distribution Width 17.2 % (11.8-14.3)
[2022-04-11 05:26] LABS: Basophils % (auto) 0.6 % (0.0-2.0); Eosinophils % (auto) 4.4 % (0.0-7.0); Hematocrit 26.2 % (36.0-46.0); Lymphocytes # (auto) 1.6 10 ^3/uL (0.4-5.4); Lymphocytes % (auto) 43.4 % (10.0-50.0); Mean Corpuscular Hgb Conc. 30.4 g/dL (32.0-36.0); Mean Corpuscular Volume 69.1 fL (80.0-100.0); Monocytes % (auto) 6.8 % (0.0-12.0); Neutrophils # (auto) 1.6 10 ^3/uL (1.6-8.6); Neutrophils % (auto) 44.8 % (37.0-80.0); Nucleated Red Blood Cells % 0.1 %; Red Blood Cells 3.78 10^6/uL (4.0-5.20); White Blood Cell 3.7 10^3/uL (4.4-10.8)
[2022-04-11] MEDS: FERROUS SULFATE 325mg EC TAB PO SCH ×2 (07:59→08:15)
[2022-04-11] MEDS: PHENYLEPHRINE IV 250 ML IV SCH (07:59)
== END 2022-04-11 08:30 | disposition left against medical advice (07) | DRG 53 ==
LOC: ER 14:12 → EDBD 14:12 → OVERFLOW 21:31 → EAST 04-10 15:42 → CENTRAL 04-10 22:10 → TELE-CENTR 04-10 23:22
PROVIDERS: ADMIT Nurse Practitioner; ATTEND Internal Medicine
DX: G40.909 Epilepsy, unspecified, not intractable, without status epilepticus (principal); I95.9 Hypotension, unspecified; D64.9 Anemia, unspecified; E87.6 Hypokalemia; D50.9 Iron deficiency anemia, unspecified; F12.90 Cannabis use, unspecified, uncomplicated; F41.0 Panic disorder [episodic paroxysmal anxiety]; Z53.29 Procedure and treatment not carried out because of patient's decision for other reasons; Z20.822 Contact with and (suspected) exposure to COVID-19; I10 Essential (primary) hypertension; Z80.1 Family history of malignant neoplasm of trachea, bronchus and lung; Z88.8 Allergy status to other drugs, medicaments and biological substances; Z82.3 Family history of stroke; Z82.49 Family history of ischemic heart disease and other diseases of the circulatory system; Z83.2 Family history of diseases of the blood and blood-forming organs and certain disorders involving the immune mechanism; Z80.0 Family history of malignant neoplasm of digestive organs
CPT/HCPCS: 36415; 70450; 70551; 76856; 80048; 80053; 80307; 82728; 83540; 83550; 83615; 84484; 85025; 85045; 86880; 87426; 87804; 93306; 96361; 96365; 96366; G0378; J7060

== ENCOUNTER 2023-11-19 21:39 | Emergency (ER) | payer MEDICAID ==
[~2023-11-19] VITALS: Ht 162.6 cm; Wt 44.0 kg
[~2023-11-19 21:39] MED LIST changes: +LEVE500T40 PO
[2023-11-20] MEDS ORDERED: CYCL-837 PO (00:08)
[2023-11-20 01:51] VITALS: BP 92/55; PULSE 55; RESP 14; O2SAT 100
== END 2023-11-20 00:08 | disposition home or self-care (01) ==
LOC: ER 21:39
DX: G44.209 Tension-type headache, unspecified, not intractable (principal); F41.9 Anxiety disorder, unspecified; F15.90 Other stimulant use, unspecified, uncomplicated; Z86.2 Personal history of diseases of the blood and blood-forming organs and certain disorders involving the immune mechanism
CPT/HCPCS: 70450

== ENCOUNTER → 2023-11-22 | Emergency (ER) | payer MEDICAID ==
[~2023-11-22] VITALS: Ht 162.6 cm; Wt 44.5 kg
[~2023-11-22] MED LIST changes: +CYCL-837 PO; +SODIUM CHLORIDE 0.9% 1,000 ML IV ONE
[2023-11-22 13:00] VITALS: BP 98/55; RESP 18; O2SAT 99
[2023-11-22 13:10] VITALS: PULSE 55
== END | disposition left against medical advice (07) ==
LOC: EDUNIT# 12:53 → ER 13:00 → EDBD 13:00
DX: R53.1 Weakness (principal); R55 Syncope and collapse; Z53.21 Procedure and treatment not carried out due to patient leaving prior to being seen by health care provider

== ENCOUNTER 2024-01-04 14:28 | Emergency (ER) | payer MEDICAID ==
[~2024-01-04] VITALS: Ht 162.6 cm; Wt 48.0 kg
[~2024-01-04 14:28] MED LIST changes: -SODIUM CHLORIDE 0.9% 1,000 ML IV ONE
[2024-01-04] MEDS: LORazepam 2MG/ML-1ML VIAL IV ONE (14:45)
[2024-01-04 15:11] VITALS: PULSE 63; RESP 20; O2SAT 100
[2024-01-04 15:45] LABS: Basophils # (auto) 0 10 ^3/uL (0-0.2); Eosinophils # (auto) 0.2 10 ^3/uL (0-0.8); Lymphocytes # (auto) 1.5 10 ^3/uL (0.4-5.4); Monocytes # (auto) 0.3 10 ^3/uL (0-1.3); Nucleated Red Blood Cells % 0.1 %; Red Cell Distribution Width 15.5 % (11.8-14.3)
[2024-01-04 15:47] LABS: Basophils % (auto) 0.7 % (0.0-2.0); Eosinophils % (auto) 3.5 % (0.0-7.0); Hematocrit 32.7 % (36.0-46.0); Hemoglobin 10.1 g/dL (12.2-16.2); Mean Corpuscular Hemoglobin 22.8 pg (28.0-32.0); Mean Corpuscular Volume 73.4 fL (80.0-100.0); Neutrophils # (auto) 2.9 10 ^3/uL (1.6-8.6); Neutrophils % (auto) 58.8 % (37.0-80.0); Platelet Count (auto) 326 10^3/uL (140-450); Red Blood Cells 4.45 10^6/uL (4.0-5.20); White Blood Cell 4.9 10^3/uL (4.4-10.8)
[2024-01-04 15:55] LABS: Chloride 107 mmol/L (98-107); Potassium 3.8 mmol/L (3.5-5.1); Sodium 138 mmol/L (136-145)
[2024-01-04 15:56] LABS: Anion Gap 8 (5-15); Calcium 9.5 mg/dL (8.7-10.4); Carbon Dioxide 23 mmol/L (20-30)
[2024-01-04 16:01] LABS: BUN/Creatinine Ratio 12.9 (10.0-20.0); Blood Urea Nitrogen 9 mg/dL (9-23); Glucose 87 mg/dL (74-106)
[2024-01-04 16:29] LABS: Urine Bacteria FEW /hpf (None Seen); Urine Blood Negative /uL (Negative); Urine Clarity Clear (Clear); Urine Color Light-Yellow (Yellow); Urine Mucus FEW (None Seen); Urine Protein, UAD Negative (Negative); Urine Specific Gravity 1.012 (1.001-1.035); Urine Urobilinogen Normal (Negative); Urine WBC 74 /hpf (0 - 5); Urine pH 6.5 (5.0-9.0)
[2024-01-04] MEDS: cefTRIAXone 1GM/50ML D5W 50 ML IV ONE (19:28)
[2024-01-04 19:43] VITALS: PULSE 71; RESP 18; O2SAT 100
[2024-01-04 20:40] VITALS: BP 98/53; PULSE 59; RESP 18; TEMP 97.9; O2SAT 100
== END 2024-01-04 20:42 | disposition left against medical advice (07) ==
LOC: EDBD 14:28 → ER 14:28
DX: G40.909 Epilepsy, unspecified, not intractable, without status epilepticus (principal); F41.9 Anxiety disorder, unspecified; F15.90 Other stimulant use, unspecified, uncomplicated; Z86.2 Personal history of diseases of the blood and blood-forming organs and certain disorders involving the immune mechanism
CPT/HCPCS: 36415; 80048; 81001; 85025; 96365; 99285; J0696

== ENCOUNTER 2024-04-04 03:19 | Emergency (ER) | payer MEDICAID ==
[~2024-04-04] VITALS: Ht 165.1 cm; Wt 47.5 kg
--- NOTE | 2024-04-04 03:42 | ED.PDOC ---
History of Present Illness HPI Comments 33-year-old female who came to ER for abdominal pain. Patient does have history of gallstones, anemia, and seizures. States for the past week left upper quadrant abdominal pain, associated with nausea. Abdominal pain will persist radiating to her lower ribcage area and up to her anterior chest wall which pe rsisted all day. Patient appears very anxious at this time of care. Chief Complaint: Abdominal Pain Time Seen by MD: 03:41 Primary Care Provider: ALFREDO Garrido Notes: Nurses Notes Allergies: Coded Allergies: Diphenhydramine (Verified Allergy, Severe, 04/09/22) Avocado (Verified Allergy, Mild, 04/09/22) itchy throat Uncoded Allergies: nuts (Allergy, Mild, 07/16/20) itching Home Meds Active Scripts Famotidine (PEPCID TABLET) 20 Mg Tb, 1 TAB PO BID PRN for 10 Days, #20 TAB 5 Refills Prov:BRENT BRENNAN MD 04/04/24 Ondansetron Odt 4MG Tab (ZOFRAN PO) 4 Mg Tb, 4 MG PO Q4HPRN PRN for 7 Days, #35 TAB ODT TAB-DISSOLVE IN MOUTH, THEN SWALLOW Prov:BRENT BRENNAN MD 04/04/24 Cyclobenzaprine Hcl (Cyclobenzaprine Hcl) 5 Mg Tab, 1 TAB PO QPM PRN, #30 TAB Prov:DEIRDA DAMON 11/20/23 Levetiracetam (Keppra) 500 Mg Tab, 1 TAB PO BID, #60 TAB 5 Refills Prov:JI SINGER MD 04/09/22 Reported Medications Magnesium Oxide (MAGNESIUM OXIDE) 400 Mg Tab, 1 TAB PO DAILY, #30 TAB 5 Refills 09/23/21 Cyanocobalamin (B-12) 2,000 Mcg Tab, 2000 MCG PO, TAB 09/23/21 Information Source: Patient Mode of Arrival: Ambulatory Severity: Moderate Timing: Days Duration: Intermittent Prehospital treatment: None Past Medical History PAST MEDICAL HISTORY: Anemia, Anxiety, Gallstones, Seizures Surgical History: Denies all surgeries ENGINE TURNER History: No Pertinent ENGINE TURNER History Family History Family History: Reviewed,noncontributory to illness Social History Smoker: Non-Smoker Alcohol: Denies ETOH Use Drugs: Marijuana Lives In: Home Constitutional: denies: chills, diaphoresis, fatigue, fever, malaise, sweats, weakness, others EENTM: denies: blurred vision, double vision, ear bleeding, ear discharge, ear drainage, ear pain, ear ringing, eye pain, eye redness, hearing loss, mouth pain, mouth swelling, nasal discharge, nose bleeding, nose congestion, nose pain, photophobia, tearing, throat pain, throat swelling, voice changes, others Respiratory: denies: cough, hemoptysis, orthopnea, SOB at rest, shortness of breath, SOB with excertion, stridor, wheezing, others Cardiovascular: reports: chest pain; denies: dizzy spells, diaphoresis, Dyspnea on exertion, edema, irregular heart beat, left arm pain, lightheadedness, palpitations, PND, syncope, others Gastrointestinal: reports: abdominal pain, nausea; denies: abdomen distended, blood streaked bowels, constipated, diarrhea, dysphagia, difficulty swallowing, hematemesis, melena, poor appetite, poor fluid intake, rectal bleeding, rectal pain, vomiting, others Genitourinary: denies: abnormal vagina bleeding, burning, dyspareunia, dysuria, flank pain, frequency, hematuria, incontinence, pain, , vagina discharge, urgency, others Neurological: denies: dizziness, fainting, headache, left sided numbness, left sided weakness, numbness, paresthesia, pre-existing deficit, right sided numbness, right sided weakness, seizure, speech problems, tingling, tremors, weakness, others Musculoskeletal: denies: back pain, gout, joint pain, joint swelling, muscle pain, muscle stiffness, neck pain, others Integumetry: denies: bruises, change in color, change in hair/nails, dryness, laceration, lesions, lumps, rash, wounds, others Allergic/Immunocompromised: denies: Difficulty Healing, Frequent Infections, Hives, Itching, others Hematologic/Lymphatic: denies: anemia, blood clots, easy bleeding, easy bruising, swollen glands, others Endocrine: denies: excessive hunger, excessive sweating, excessive thirst, excessive urination, flushing, intolerance to cold, intolerance to heat, unexplained weight gain, unexplained weight loss, others Psychiatric: denies: anxiety, bipolar disorder, depression, hopeless, panic disorder, schizophrenia, sleepless, suicidal, others Physical Exam General Appearance: Mild Distress, Normal HEENT: Normal ENT Inspection, Pharynx Normal, TMs Normal Neck: Full Range of Motion, Non-Tender, Normal, Normal Inspection Respiratory: Chest Non-Tender, Lungs Clear, No Accessory Muscle Use, No Respiratory Distress, Normal Breath Sounds Cardiovascular: No Edema, No JVD, No Murmur, No Gallop, Normal Peripheral Pulses, Regular Rate/Rhythm Breast Exam: Deferred Gastrointestinal: LUQ, No Organomegaly, No Pulsatile Mass, Soft, Tenderness Genitalia: Deferred Pelvic: Deferred Rectal: Deferred Extremities: No calf tenderness, Normal capillary refill, Normal inspection, Normal range of motion, Non-tender, No pedal edema Musculoskeletal : Apperance: Normal Neurologic: Alert, volcanology teacher II-XII nml as Tested, No Motor Deficits, Normal Affect, Normal Mood, No Sensory Deficits Cerebellar Function: Normal Reflexes: Normal Skin: Dry, Normal Color, Warm Lymphatic: No Adenopathy Was a procedure done? Was a procedure done?: No Differential Dx Considerations may include: Anemia, electrolyte imbalance, urinary tract infection, gallstones, anxiety X-Ray, Labs, Meds, VS Vital Signs Date Time Temp Pulse Resp B/P (MAP) Pulse Ox O2 Delivery O2 Flow Rate FiO2 04/04/24 05:37 61 19 100 Room Air 04/04/24 05:37 97.8 61 19 96/61 (73) 100 97.8 04/04/24 03:33 98.0 83 18 102/65 (77) 93 04/04/24 03:24 62 Lab Test 04/04/24 04:10 04/04/24 03:24 Range/Units Troponin I High Sensitivity < 3 L < 3 L </=34 ng/L White Blood Count 5.1 4.4-10.8 10^3/uL Red Blood Count 4.23 4.0-5.20 10^6/uL Hemoglobin 8.9 L 12.2-16.2 g/dL Hematocrit 29.7 L 36.0-46.0 % Mean Corpuscular Volume 70.3 L 80.0-100.0 fL Mean Corpuscular Hemoglobin 21.1 L 28.0-32.0 pg Mean Corpuscular Hemoglobin Concent 30.0 L 32.0-36.0 g/dL Red Cell Distribution Width 17.0 H 11.8-14.3 % Platelet Count 379 140-450 10^3/uL Mean Platelet Volume 6.9 6.9-10.8 fL Neutrophils (%) (Auto) 44.8 37.0-80.0 % Lymphocytes (%) (Auto) 42.8 10.0-50.0 % Monocytes (%) (Auto) 8.1 0.0-12.0 % Eosinophils (%) (Auto) 3.5 0.0-7.0 % Basophils (%) (Auto) 0.8 0.0-2.0 % Neutrophils # (Auto) 2.3 1.6-8.6 10 ^3/uL Lymphocytes # (Auto) 2.2 0.4-5.4 10 ^3/uL Monocytes # (Auto) 0.4 0-1.3 10 ^3/uL Eosinophils # (Auto) 0.2 0-0.8 10 ^3/uL Basophils # (Auto) 0 0-0.2 10 ^3/uL Nucleated Red Blood Cells 0.0 % Sodium Level 141 136-145 mmol/L Potassium Level 3.9 3.5-5.1 mmol/L Chloride Level 109 H 98-107 mmol/L Carbon Dioxide Level 26 20-31 mmol/L Anion Gap 6 5-15 Blood Urea Nitrogen 15 9-23 mg/dL Creatinine 0.61 0.550-1.02 mg/dL Glomerular Filtration Rate Calc 122 >90 mL/min BUN/Creatinine Ratio 24.6 H 10.0-20.0 Serum Glucose 96 74-106 mg/dL Calcium Level 9.8 8.7-10.4 mg/dL Total Bilirubin 0.4 0.2-1.0 mg/dL Aspartate Amino Transferase (AST) 9 L 13-40 U/L Alanine Aminotransferase (ALT) 11 7-40 U/L Alkaline Phosphatase 48 46-116 U/L Total Protein 6.9 5.7-8.2 g/dL Albumin 4.8 3.2-4.8 g/dL Lipase 55 H 12-53 U/L PROCEDURE(s): ABPL - CT AB PEL WO CON-NO ORAL OR IV REASON: left flank pain ORDER NUMBER(s): [id number], ACCESSION NUMBER(s): [id number] Exam: CT CT AB PEL WO CON-NO ORAL OR IV History: Left flank pain Comparison Study: None available at time of dictation. TECHNIQUE: Multidetector CT of the abdomen and pelvis was performed from lung bases to ischial tuberosities. Imaging was performed without IV contrast using axial images. Coronal and sagittal reformats were obtained from the axial data set by the technologist. Radiation Dose Information: CT Dose: CTDI volume is 5.1 mGy. Dose-length product is 254.4 mGy*cm FINDINGS: Evaluation of solid organs is limited due to lack of intravenous contrast use. Findings: Lung Bases: No acute or significant lung base finding. Normal heart size. No pleural or pericardial effusion. Liver: The liver is normal in size. 1.6 cm low attenuating lesion in the left hepatic lobe. Gallbladder and Biliary Tree: Cholelithiasis. No biliary ductal dilatation. Spleen: Unremarkable Pancreas: The pancreas is grossly normal in appearance. Adrenal Glands: Unremarkable Kidneys: Kidneys are grossly normal without calculi or hydronephrosis. GI Tract: The stomach is grossly normal in appearance. Small bowel is normal in caliber. Diffuse stool throughout colon. The appendix is not visualized, however there are no inflammatory changes in the right lower quadrant to suggest acute appendicitis. Peritoneal cavity: No pneumoperitoneum. No ascites. Lymphadenopathy: No mesenteric, retroperitoneal or periportal lymphadenopathy. Abdominal Wall and Mesentery: Unremarkable. Vasculature: The visualized abdominal aorta is normal in size and caliber. Evaluation of abdominal and pelvic vessels is limited due to lack of intravenous contrast. Pelvic Organs: Uterus and adnexal structures unremarkable. Urinary Bladder: Grossly unremarkable for degree of distention. Musculoskeletal: No aggressive focal bony lesions, acute fractures or dislocation. Soft tissues: Unremarkable IMPRESSION: 1. Copious stool throughout the colon may represent constipation appropriate clinical setting. 2. Cholelithiasis. 3. 1.6 cm left hepatic lobe lesion. Further evaluated nonemergent right upper quadrant ultrasound. Time of 1ST Reevaluation: 03:38 Reevaluation 1ST: Unchanged Time of 2ND Reevaluation: 05:54 Reevaluation 2ND: Improved Patient Education/Counseling: Diagnosis, Treatment Family Education/Counseling: No Family Present Departure 1 Departure Time of Disposition: 05:52 Impression: Primary Impression: Abdominal pain Qualified Codes: R10.12 - Left upper quadrant pain Additional Impressions: Constipation Cholelithiasis Disposition: 01 HOME / SELF CARE / HOMELESS Condition: Stable e-Prescriptions Famotidine (PEPCID TABLET) 20 Mg Tb 1 TAB PO BID PRN for 10 Days, #20 TAB 5 Refills Prov: BRENT BRENNAN MD 04/04/24 Ondansetron Odt 4MG Tab (ZOFRAN PO) 4 Mg Tb 4 MG PO Q4HPRN PRN for 7 Days, #35 TAB ODT TAB-DISSOLVE IN MOUTH, THEN SWALLOW Prov: BRENT BRENNAN MD 04/04/24 Discharged With: Self, Spouse Critical Care Note Critical Care Time?: No Stability Stability form required: No Heart Score Heart Score: Heart Score Response (Comments) Value History N/A 0 EKG N/A 0 Age N/A 0 Risk Factors N/A 0 Troponin N/A 0 Total 0 I personally scribed for BRENT BRENNAN MD ([email or web address]) on 04/04/24 at 03:42. Electronically submitted by Connor Austin ([email or web address]). I personally scribed for BRENT BRENNAN MD ([email or web address]) on 04/04/24 at 04:50. Electronically submitted by Connor Austin ([email or web address] BRENT BRENNAN MD Apr 04, 2024 03:42
[2024-04-04 03:57] LABS: Basophils # (auto) 0 10 ^3/uL (0-0.2); Basophils % (auto) 0.8 % (0.0-2.0); Lymphocytes # (auto) 2.2 10 ^3/uL (0.4-5.4); Monocytes # (auto) 0.4 10 ^3/uL (0-1.3)
[2024-04-04 03:58] LABS: Eosinophils # (auto) 0.2 10 ^3/uL (0-0.8); Eosinophils % (auto) 3.5 % (0.0-7.0); Hematocrit 29.7 % (36.0-46.0); Hemoglobin 8.9 g/dL (12.2-16.2); Lymphocytes % (auto) 42.8 % (10.0-50.0); Mean Corpuscular Hemoglobin 21.1 pg (28.0-32.0); Mean Corpuscular Volume 70.3 fL (80.0-100.0); Monocytes % (auto) 8.1 % (0.0-12.0); Neutrophils # (auto) 2.3 10 ^3/uL (1.6-8.6); Neutrophils % (auto) 44.8 % (37.0-80.0); Platelet Count (auto) 379 10^3/uL (140-450); Red Blood Cells 4.23 10^6/uL (4.0-5.20); White Blood Cell 5.1 10^3/uL (4.4-10.8)
[2024-04-04 04:14] LABS: Alanine Aminotransferase 11 U/L (7-40); Albumin 4.8 g/dL (3.2-4.8); Alkaline Phosphatase 48 U/L (46-116); Anion Gap 6 (5-15); Aspartate Aminotransferase 9 U/L (13-40); BUN/Creatinine Ratio 24.6 (10.0-20.0); Blood Urea Nitrogen 15 mg/dL (9-23); Calcium 9.8 mg/dL (8.7-10.4); Carbon Dioxide 26 mmol/L (20-31); Chloride 109 mmol/L (98-107); Glucose 96 mg/dL (74-106); Lipase 55 U/L (12-53); Potassium 3.9 mmol/L (3.5-5.1); Sodium 141 mmol/L (136-145)
[2024-04-04 04:15] LABS: Bilirubin, Total 0.4 mg/dL (0.2-1.0); Total Protein 6.9 g/dL (5.7-8.2)
--- NOTE | 2024-04-04 04:32 | DVH ---
Exam: CT CT AB PEL WO CON-NO ORAL OR IV History: Left flank pain Comparison Study: None available at time of dictation. TECHNIQUE: Multidetector CT of the abdomen and pelvis was performed from lung bases to ischial tubero sities. Imaging was performed without IV contrast using axial images. Coronal and sagittal reformats were obtained from the axial data set by the technologist. Radiation Dose Information: CT Dose: CTDI volume is 5.1 mGy. Dose-length product is 254.4 mGy*cm FINDINGS: Evaluation of solid organs is limited due to lack of intravenous contrast use. Findings: Lung Bases: No acute or significant lung base finding. Normal heart size. No pleural or pericardial effusion. Liver: The liver is normal in size. 1.6 cm low attenuating lesion in the left hepatic lobe. Gallbladder and Biliary Tree: Cholelithiasis. No biliary ductal dilatation. Spleen: Unremarkable Pancreas: The pancreas is grossly normal in appearance. Adrenal Glands: Unremarkable Kidneys: Kidneys are grossly normal without calculi or hydronephrosis. GI Tract: The stomach is grossly normal in appearance. Small bowel is normal in caliber. Diffuse stoo l throughout colon. The appendix is not visualized, however there are no inflammatory changes in the right lower quadrant to suggest acute appendicitis. Peritoneal cavity: No pneumoperitoneum. No ascites. Lymphadenopathy: No mesenteric, retroperitoneal or periportal lymphadenopathy. Abdominal Wall and Mesentery: Unremarkable. Vasculature: The visualized abdominal aorta is normal in size and caliber. Evaluation of abdominal a nd pelvic vessels is limited due to lack of intravenous contrast. Pelvic Organs: Uterus and adnexal structures unremarkable. Urinary Bladder: Grossly unremarkable for degree of distention. Musculoskeletal: No aggressive focal bony lesions, acute fractures or dislocation. Soft tissues: Unremarkable IMPRESSION: 1. Copious stool throughout the colon may represent constipation appropriate clinical setting. 2. Cholelithiasis. 3. 1.6 cm left hepatic lobe lesion. Further evaluated nonemergent right upper quadrant ultrasound. Radiation optimization: All CT scans at this facility use at least one of these dose optimization kerrie hniques: automated exposure control mA and/or kV adjustment per patient size (includes targeted exam s where dose is matched to clinical indication) or iterative reconstruction.
--- NOTE | 2024-04-04 04:51 | DVH ---
CHEST RADIOGRAPH Indication: CHEST PAIN Technique: Single frontal view of the chest was obtained Comparison: CHEST PORTABLE on DOS: 11/01/21 FINDINGS: Lines and Tubes: None Lungs: No focal consolidation. Pleura: No effusion. No pneumothorax. Cardiomediastinal contours: Unremarkable Bones: No acute osseous abnormality. IMPRESSION: 1. No acute cardiopulmonary disease.
[2024-04-04] MEDS ORDERED: ZOFR4T PO (04:53)
[2024-04-04] MEDS ORDERED: FAMO20TA10 PO (04:53)
[2024-04-04 05:37] VITALS: BP 96/61; PULSE 61; RESP 19; TEMP 97.8; O2SAT 100
== END 2024-04-04 05:39 | disposition home or self-care (01) ==
LOC: ER 03:19
DX: K80.20 Calculus of gallbladder without cholecystitis without obstruction (principal); K59.00 Constipation, unspecified; F41.9 Anxiety disorder, unspecified; F15.90 Other stimulant use, unspecified, uncomplicated; Z86.2 Personal history of diseases of the blood and blood-forming organs and certain disorders involving the immune mechanism; Z88.8 Allergy status to other drugs, medicaments and biological substances; Z79.899 Other long term (current) drug therapy; Z91.018 Allergy to other foods
CPT/HCPCS: 36415; 71045; 74176; 80053; 83690; 84484; 85025; 93005

== ENCOUNTER 2024-04-27 10:42 | Emergency (ER) | payer MEDICAID ==
[~2024-04-27] VITALS: Ht 170.2 cm; Wt 46.5 kg
[~2024-04-27 10:42] MED LIST changes: +FAMO20TA10 PO; +ZOFR4T PO
[2024-04-27 11:08] LABS: Urine Bacteria None Seen /hpf (None Seen)
[2024-04-27 11:40] LABS: Urine Blood 2+ /uL (Negative); Urine Clarity Turbid (Clear); Urine Color Colorless (Yellow); Urine Protein, UAD Negative (Negative); Urine Specific Gravity 1.014 (1.001-1.035); Urine Squamous Epithelial Cell FEW /hpf (<5); Urine Urobilinogen Normal (Negative); Urine WBC 114 /hpf (0 - 5)
[2024-04-27 12:29] LABS: Basophils # (auto) 0 10 ^3/uL (0-0.2); Eosinophils # (auto) 0.1 10 ^3/uL (0-0.8); Hemoglobin 8.7 g/dL (12.2-16.2); Monocytes # (auto) 0.2 10 ^3/uL (0-1.3); Red Blood Cells 4.16 10^6/uL (4.0-5.20); White Blood Cell 5.1 10^3/uL (4.4-10.8)
[2024-04-27 12:36] LABS: Basophils % (auto) 0.6 % (0.0-2.0); Eosinophils % (auto) 1.3 % (0.0-7.0); Hematocrit 29.1 % (36.0-46.0); Lymphocytes # (auto) 0.9 10 ^3/uL (0.4-5.4); Lymphocytes % (auto) 17.8 % (10.0-50.0); Mean Corpuscular Volume 70.1 fL (80.0-100.0); Monocytes % (auto) 4.4 % (0.0-12.0); Neutrophils # (auto) 3.9 10 ^3/uL (1.6-8.6); Neutrophils % (auto) 75.9 % (37.0-80.0); Platelet Count (auto) 317 10^3/uL (140-450); Red Cell Distribution Width 17.1 % (11.8-14.3)
[2024-04-27 12:44] LABS: Albumin 4.5 g/dL (3.2-4.8); Alkaline Phosphatase 50 U/L (46-116); Anion Gap 7 (5-15); Aspartate Aminotransferase 14 U/L (13-40); BUN/Creatinine Ratio 14.9 (10.0-20.0); Blood Urea Nitrogen 10 mg/dL (9-23); Calcium 9.7 mg/dL (8.7-10.4); Carbon Dioxide 25 mmol/L (20-31); Glucose 91 mg/dL (74-106); Potassium 4.2 mmol/L (3.5-5.1); Sodium 140 mmol/L (136-145)
[2024-04-27 12:45] LABS: Bilirubin, Total 0.4 mg/dL (0.2-1.0); Total Protein 6.8 g/dL (5.7-8.2)
[2024-04-27 12:47] LABS: Alanine Aminotransferase 9 U/L (7-40); Chloride 108 mmol/L (98-107)
[2024-04-27] MEDS ORDERED: cefTRIAXone 2GM/50ML D5W 50 ML IV ONE (17:00)
[2024-04-27] MEDS ORDERED: CEPH250S PO (17:02)
[2024-04-27] MEDS ORDERED: CIPR500S2 PO (17:26)
--- NOTE | 2024-04-27 17:46 | ED.PDOC ---
History of Present Illness HPI Comments 34-year-old female with Hx of anemia, anxiety, cholelithiasis, seizures, and UTI's presents with complaint of dysuria and non-radiating, bilateral flank pain. Reports onset of symptoms at 7:00 a.m. this morning. She describes pain upon urination as burning in quality and reports current symptoms feeling sim ilar to when she had a UTI's in the past. Patient also comments on concern regarding history of having seizures whenever she has a UTI. She states she has been compliant with her Keppra. She denies having any nausea, vomiting, diarrhea, hematuria, fever, chills, or other associated symptoms or modifiers at this time. Chief Complaint: Urinary Time Seen by MD: 17:00 Primary Care Provider: ANTOLIN Garrido Notes: Nurses Notes, Medications, Allergies Allergies: Coded Allergies: Diphenhydramine (Verified Allergy, Severe, 04/09/22) Avocado (Verified Allergy, Mild, 04/09/22) itchy throat Penicillins (Verified Allergy, Unknown, 04/27/24) Uncoded Allergies: nuts (Allergy, Mild, 07/16/20) itching Home Meds Active Scripts Ciprofloxacin (Cipro) 500 Mg/5 Ml Sari, 500 MG PO BID for 7 Days, #70 ML Prov:NGUYỄN ESPINOZA MD 04/27/24 Famotidine (PEPCID TABLET) 20 Mg Tb, 1 TAB PO BID PRN for 10 Days, #20 TAB 5 Refills Prov:BRENT BRENNAN MD 04/04/24 Ondansetron Odt 4MG Tab (ZOFRAN PO) 4 Mg Tb, 4 MG PO Q4HPRN PRN for 7 Days, #35 TAB ODT TAB-DISSOLVE IN MOUTH, THEN SWALLOW Prov:BRENT BRENNAN MD 04/04/24 Cyclobenzaprine Hcl (Cyclobenzaprine Hcl) 5 Mg Tab, 1 TAB PO QPM PRN, #30 TAB Prov:DEIDRA DAMON 11/20/23 Levetiracetam (Keppra) 500 Mg Tab, 1 TAB PO BID, #60 TAB 5 Refills Prov:JI SINGER MD 04/09/22 Reported Medications Magnesium Oxide (MAGNESIUM OXIDE) 400 Mg Tab, 1 TAB PO DAILY, #30 TAB 5 Refills 09/23/21 Cyanocobalamin (B-12) 2,000 Mcg Tab, 2000 MCG PO, TAB 09/23/21 Information Source: Patient Mode of Arrival: Ambulatory Severity: Moderate Timing: Hours Duration: Since onset Prehospital treatment: None Past Medical History PAST MEDICAL HISTORY: Anemia, Anxiety, Gallstones, Seizures (Epilepsy), UTI'S Surgical History: Denies all surgeries CAPTAIN ASSISTANT History: No Pertinent CAPTAIN ASSISTANT History Family History Family History: Reviewed,noncontributory to illness Social History Smoker: Non-Smoker Alcohol: Denies ETOH Use Drugs: Marijuana Lives In: Home Genitourinary: reports: dysuria, flank pain (Bilateral) All Other Systems: Reviewed and Negative (Negative unless otherwise stated above or in HPI) Physical Exam General Appearance: No Apparent Distress, Normal HEENT: Other (Unremarkable) Neck: Full Range of Motion, Normal Inspection Respiratory: Lungs Clear, No Accessory Muscle Use, No Respiratory Distress, Normal Breath Sounds Cardiovascular: No Edema, No JVD, Regular Rate/Rhythm Breast Exam: Deferred Gastrointestinal: Suprapubic, Tenderness Genitalia: Deferred Pelvic: Deferred Rectal: Deferred Extremities: Normal inspection, Normal range of motion, No pedal edema Neurologic: Alert (Oriented x4), Normal Affect, Other (Appears anxious. Ambulatory without difficulty. No gross focal deficit.) Cerebellar Function: NOT DONE Reflexes: NOT DONE Skin: Dry, Normal Color, Warm Lymphatic: NOT DONE Was a procedure done? Was a procedure done?: No Differential Dx Considerations may include: Cystitis, pyelonephritis, PID, nephrolithiasis, ovarian cyst, ovarian torsion, , among others X-Ray, Labs, Meds, VS Vital Signs Date Time Temp Pulse Resp B/P (MAP) Pulse Ox O2 Delivery O2 Flow Rate FiO2 04/27/24 10:56 97.5 5 18 110/57 (74) 100 Lab Test 04/27/24 11:59 04/27/24 11:00 Range/Units White Blood Count 5.1 4.4-10.8 10^3/uL Red Blood Count 4.16 4.0-5.20 10^6/uL Hemoglobin 8.7 L 12.2-16.2 g/dL Hematocrit 29.1 L 36.0-46.0 % Mean Corpuscular Volume 70.1 L 80.0-100.0 fL Mean Corpuscular Hemoglobin 21.0 L 28.0-32.0 pg Mean Corpuscular Hemoglobin Concent 30.0 L 32.0-36.0 g/dL Red Cell Distribution Width 17.1 H 11.8-14.3 % Platelet Count 317 140-450 10^3/uL Mean Platelet Volume 7.3 6.9-10.8 fL Neutrophils (%) (Auto) 75.9 37.0-80.0 % Lymphocytes (%) (Auto) 17.8 10.0-50.0 % Monocytes (%) (Auto) 4.4 0.0-12.0 % Eosinophils (%) (Auto) 1.3 0.0-7.0 % Basophils (%) (Auto) 0.6 0.0-2.0 % Neutrophils # (Auto) 3.9 1.6-8.6 10 ^3/uL Lymphocytes # (Auto) 0.9 0.4-5.4 10 ^3/uL Monocytes # (Auto) 0.2 0-1.3 10 ^3/uL Eosinophils # (Auto) 0.1 0-0.8 10 ^3/uL Basophils # (Auto) 0 0-0.2 10 ^3/uL Nucleated Red Blood Cells 0.0 % Sodium Level 140 136-145 mmol/L Potassium Level 4.2 3.5-5.1 mmol/L Chloride Level 108 H 98-107 mmol/L Carbon Dioxide Level 25 20-31 mmol/L Anion Gap 7 5-15 Blood Urea Nitrogen 10 9-23 mg/dL Creatinine 0.67 0.550-1.02 mg/dL Glomerular Filtration Rate Calc 118 >90 mL/min BUN/Creatinine Ratio 14.9 10.0-20.0 Serum Glucose 91 74-106 mg/dL Calcium Level 9.7 8.7-10.4 mg/dL Total Bilirubin 0.4 0.2-1.0 mg/dL Aspartate Amino Transferase (AST) 14 13-40 U/L Alanine Aminotransferase (ALT) 9 7-40 U/L Alkaline Phosphatase 50 46-116 U/L Total Protein 6.8 5.7-8.2 g/dL Albumin 4.5 3.2-4.8 g/dL Beta HCG, Quantitative 1.4 L 1.5-4.2 mIU/mL Urine Color Colorless Yellow Urine Clarity Turbid H Clear Urine pH 5.0 5.0-9.0 Urine Specific [place] 1.014 1.001-1.035 Urine Protein Negative Negative Urine Ketones Negative Negative Urine Blood 2+ H Negative /uL Urine Nitrite Negative Negative Urine Bilirubin Negative Negative Urine Urobilinogen Normal Negative mg/dL Urine Leukocyte Esterase 3+ Negative /uL Urine RBC 2 0 - 4 /hpf Urine WBC 114 0 - 5 /hpf Urine Squamous Epithelial Cells Few <5 /hpf Urine Bacteria None seen None Seen /hpf Urine Glucose Normal Normal mg/dL Urine Test Negative Negative X-Ray, Labs, Meds, VS Comment 34-year-old female with a history of seizures and UTIs presenting complaining of dysuria Vitals remarkable for BP 110/57 Exam remarkable for suprapubic tenderness to palpation Rhythm strip independently interpreted by me: Sinus rhythm, rate 100, no ectopy. CBC remarkable for hemoglobin 8.7, hematocrit 29.1, CMP unremarkable, beta hCG negative, UA abnormal consistent with UTI Treatment was ordered for the patient: 1 L 0.9 normal saline IV bolus, Levaquin 500 mg IV, Pepcid 20 mg IV On re-evaluation, patient is resting comfortably with stable vitals. Patient appears stable for outpatient treatment with oral antibiotics and close follow-up with her primary doctor. Rx Cipro Time of 1ST Reevaluation: 17:30 Reevaluation 1ST: Unchanged Patient Education/Counseling: Diagnosis, Treatment Family Education/Counseling: No Family Present Additional Information I reviewed the following notes from the pt's past medical encounters: Hospital admission discharge summary reports on 08/24 11 09/09/2021: ED physician document pertaining to ED visit on 11/22/2023, 01/04/2024, and 04/04/2024. The following tests were ordered, and results were reviewed by me: LAB (beta quant, CMP, CBC, urine test, UA) I discussed treatments and results with medical personnel Departure 1 Departure Time of Disposition: 18:00 Impression: Primary Impression: UTI (urinary tract infection) Qualified Codes: N39.0 - Urinary tract infection, site not specified Disposition: HOME / SELF CARE / HOMELESS Condition: Stable Additional Instructions: Your blood tests were unremarkable. Your urine test showed you have a urinary tract infection. I have prescribed antibiotics. Follow up with your primary doctor in 1-2 days. e-Prescriptions Ciprofloxacin (Cipro) 500 Mg/5 Ml Sari 500 MG PO BID for 7 Days, #70 ML Prov: NGUYỄN ESPINOZA MD 04/27/24 Discharged With: Relative Critical Care Note Critical Care Time?: No Stability Stability form required: No Heart Score Heart Score: Heart Score Response (Comments) Value History N/A 0 EKG N/A 0 Age N/A 0 Risk Factors N/A 0 Troponin N/A 0 Total 0 I personally scribed for NGUYỄN ESPINOZA MD ([email or web address]) on 04/27/24 at 17:46. Electronically submitted by Kyrie Acevedo ([email or web address]). NGUYỄN ESPINOZA MD Apr 27, 2024 17:46
[2024-04-27] MEDS: levoFLOXacin 500MG 100 ML IV ONE (20:12)
[2024-04-27] MEDS: SODIUM CHLORIDE 0.9% 1,000 ML IV ONE (20:22)
[2024-04-27] MEDS: levoFLOXacin 250 MG TAB PO ONE (20:22)
[2024-04-27] MEDS: FAMOTIDINE (10MG/ML) 2ML VL IV ONE (20:22)
[2024-04-27 20:31] VITALS: BP 97/64; PULSE 58; RESP 20; TEMP 98.9; O2SAT 100
== END 2024-04-27 20:33 | disposition home or self-care (01) ==
LOC: ER 10:42
DX: N39.0 Urinary tract infection, site not specified (principal); G40.909 Epilepsy, unspecified, not intractable, without status epilepticus; D64.9 Anemia, unspecified; F41.9 Anxiety disorder, unspecified; Z79.899 Other long term (current) drug therapy; Z87.440 Personal history of urinary (tract) infections; Z98.890 Other specified postprocedural states; Z88.0 Allergy status to penicillin; Z88.8 Allergy status to other drugs, medicaments and biological substances
CPT/HCPCS: 36415; 80053; 81001; 81025; 84702; 85025

== ENCOUNTER 2024-07-30 12:12 | Emergency (ER) | payer MEDICAID ==
[~2024-07-30] VITALS: Ht 162.6 cm; Wt 45.6 kg
[~2024-07-30 12:12] MED LIST changes: +CIPR500S2 PO
[2024-07-30 12:48] VITALS: BP 89/53; RESP 18; TEMP 98.9; O2SAT 100
[2024-07-30 13:08] VITALS: PULSE 53
--- NOTE | 2024-07-30 13:11 | ED.PDOC ---
History of Present Illness HPI Comments 34F presents to the Er w/ no prior Hx associated to the c/c of CP. Pt reports that she was at [place] yesterday and was riding alot rides and assumes that is the reason why she is having left sided chest/rib pain and of which radiates to the back. PMHx of Anemia, Anxiety, Gallstones, Sz (epilepsy) and UTI. SHx of . Denies chills, fever, N/V/D, SOB or no other associated symptom's, modifiers, recent injuries or sick contacts at this time. Chief Complaint: Chest Pain Time Seen by MD: 13:00 Primary Care Provider: ANTOLIN Garrido Notes: Nurses Notes, Medications, Allergies Allergies: Coded Allergies: Diphenhydramine (Verified Allergy, Severe, 04/09/22) Avocado (Verified Allergy, Mild, 04/09/22) itchy throat Penicillins (Verified Allergy, Unknown, 04/27/24) Uncoded Allergies: nuts (Allergy, Mild, 07/16/20) itching Home Meds Active Scripts Ibuprofen Micronized (MOTRIN TABLET) 600 Mg Tb, 600 MG PO TID PRN for 3 Days, #9 TAB *Black box warning-NSAIDS can increase risk of AL & hypertension, GI irritation, ulceration, bleed, perferation. Do not use post cardiac surgery. Use short duration/lowest effective dose. Prov:JESSICA SINCLAIR MD 07/30/24 Ciprofloxacin (Cipro) 500 Mg/5 Ml Sari, 500 MG PO BID for 7 Days, #70 ML Prov:NGUYỄN ESPINOZA MD 04/27/24 Famotidine (PEPCID TABLET) 20 Mg Tb, 1 TAB PO BID PRN for 10 Days, #20 TAB 5 Refills Prov:BRENT BRENNAN MD 04/04/24 Ondansetron Odt 4MG Tab (ZOFRAN PO) 4 Mg Tb, 4 MG PO Q4HPRN PRN for 7 Days, #35 TAB ODT TAB-DISSOLVE IN MOUTH, THEN SWALLOW Prov:BRENT BRENNAN MD 04/04/24 Cyclobenzaprine Hcl (Cyclobenzaprine Hcl) 5 Mg Tab, 1 TAB PO QPM PRN, #30 TAB Prov:DEIDRA DAMON 11/20/23 Levetiracetam (Keppra) 500 Mg Tab, 1 TAB PO BID, #60 TAB 5 Refills Prov:JI SINGER MD 04/09/22 Reported Medications Magnesium Oxide (MAGNESIUM OXIDE) 400 Mg Tab, 1 TAB PO DAILY, #30 TAB 5 Refills 09/23/21 Cyanocobalamin (B-12) 2,000 Mcg Tab, 2000 MCG PO, TAB 09/23/21 Information Source: Patient Mode of Arrival: Ambulatory Severity: Moderate Timing: Hours Duration: Since onset, Hours Prehospital treatment: None Past Medical History PAST MEDICAL HISTORY: Anemia, Anxiety, Gallstones, Seizures, UTI'S 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: No Pertinent SUPERINTENDENT TRANSMISSION History Family History Family History: Reviewed,noncontributory to illness, Unknown Social History Smoker: Non-Smoker Alcohol: Denies ETOH Use Drugs: Denies Drug Use Lives In: Home Constitutional: denies: chills, diaphoresis, fatigue, fever, malaise, sweats, weakness, others EENTM: denies: blurred vision, double vision, ear bleeding, ear discharge, ear drainage, ear pain, ear ringing, eye pain, eye redness, hearing loss, mouth pain, mouth swelling, nasal discharge, nose bleeding, nose congestion, nose pain, photophobia, tearing, throat pain, throat swelling, voice changes, others Respiratory: denies: cough, hemoptysis, orthopnea, SOB at rest, shortness of breath, SOB with excertion, stridor, wheezing, others Cardiovascular: reports: chest pain; denies: dizzy spells, diaphoresis, Dyspnea on exertion, edema, irregular heart beat, left arm pain, lightheadedness, palpitations, PND, syncope, others Gastrointestinal: denies: abdomen distended, abdominal pain, blood streaked bowels, constipated, diarrhea, dysphagia, difficulty swallowing, hematemesis, melena, nausea, poor appetite, poor fluid intake, rectal bleeding, rectal pain, vomiting, others Genitourinary: denies: abnormal vagina bleeding, burning, dyspareunia, dysuria, flank pain, frequency, hematuria, incontinence, pain, , vagina disc harge, urgency, others Neurological: denies: dizziness, fainting, headache, left sided numbness, left sided weakness, numbness, paresthesia, pre-existing deficit, right sided numbness, right sided weakness, seizure, speech problems, tingling, tremors, weakness, others Musculoskeletal: reports: back pain; denies: gout, joint pain, joint swelling, muscle pain, muscle stiffness, neck pain, others Integumetry: denies: bruises, change in color, change in hair/nails, dryness, laceration, lesions, lumps, rash, wounds, others Allergic/Immunocompromised: denies: Difficulty Healing, Frequent Infections, Hives, Itching, others Hematologic/Lymphatic: denies: anemia, blood clots, easy bleeding, easy bruising, swollen glands, others Endocrine: denies: excessive hunger, excessive sweating, excessive thirst, excessive urination, flushing, intolerance to cold, intolerance to heat, unexplained weight gain, unexplained weight loss, others Psychiatric: denies: anxiety, bipolar disorder, depression, hopeless, panic disorder, schizophrenia, sleepless, suicidal, others All Other Systems: Reviewed and Negative Physical Exam General Appearance: Moderate Distress, Normal HEENT: Normal ENT Inspection, Pharynx Normal, TMs Normal Neck: Full Range of Motion, Non-Tender, Normal, Normal Inspection Respiratory: Chest Non-Tender, Lungs Clear, No Accessory Muscle Use, No Respiratory Distress, Normal Breath Sounds Cardiovascular: No Edema, No JVD, No Murmur, No Gallop, Normal Peripheral Pulses, Regular Rate/Rhythm Breast Exam: Deferred Gastrointestinal: No Organomegaly, Non Tender, No Pulsatile Mass, Normal Bowel Sounds, Soft Genitalia: Deferred Pelvic: Deferred Rectal: Deferred Extremities: No calf tenderness, Normal capillary refill, Normal inspection, Normal range of motion, Non-tender, No pedal edema Musculoskeletal : Apperance: Normal Neurologic: Alert, clerical assigner II-XII nml as Tested, No Motor Deficits, Normal Affect, Normal Mood, No Sensory Deficits Cerebellar Function: Normal Reflexes: Normal Skin: Dry, Normal Color, Warm Peripheral Pulses: 3+ Radial (R), 3+ Radial (L) Lymphatic: No Adenopathy Was a procedure done? Was a procedure done?: No Differential Dx Considerations may include: Anemia Electrolyte imbalance X-Ray, Labs, Meds, VS Vital Signs Date Time Temp Pulse Resp B/P (MAP) Pulse Ox O2 Delivery O2 Flow Rate FiO2 07/30/24 13:08 53 07/30/24 12:52 56 07/30/24 12:48 98.9 67 18 89/53 (65) 100 98.9 Lab Test 07/30/24 14:01 07/30/24 12:56 Range/Units Troponin I High Sensitivity < 3 L < 3 L </=34 ng/L Patient alert. Complaining of chest wall pain. Pain started after roller coaster ride at [employer] [employer]. Vitals stable. Answering questions. Cardiac marker within normal limits. Heart rate within normal limits. Saturation pristine on room air. No sign of any distress. Explained to the patient. Was told to follow up with her primary care physician. Was told to come back if there is any problem. Time of 1ST Reevaluation: 13:30 Reevaluation 1ST: Unchanged Patient Education/Counseling: Diagnosis, Treatment, Prognosis Family Education/Counseling: No Family Present Departure 1 Departure Time of Disposition: 14:52 Impression: Primary Impression: Chest wall pain Disposition: 01 HOME / SELF CARE / HOMELESS Condition: Good e-Prescriptions Ibuprofen Micronized (MOTRIN TABLET) 600 Mg Tb 600 MG PO TID PRN for 3 Days, #9 TAB *Black box warning-NSAIDS can increase risk of AL & hypertension, GI irritation, ulceration, bleed, perferation. Do not use post cardiac surgery. Use short duration/lowest effective dose. Prov: JESSICA SINCLAIR MD 07/30/24 Discharged With: Self Critical Care Note Critical Care Time?: No Stability Stability form required: No Heart Score Heart Score: Heart Score Response (Comments) Value History Slightly Suspicious 0 EKG Normal 0 Age <45 0 Risk Factors No known risk factors 0 Troponin Normal limit 0 Total 0 I personally scribed for JESSICA SINCLAIR MD ([email or web address]) on 07/30/24 at 13:11. Electronically submitted by Allen Kelly ([email or web address]). JESSICA SINCLAIR MD Jul 30, 2024 13:11
[2024-07-30] MEDS ORDERED: IBU600T PO (14:54)
--- NOTE | 2024-07-30 19:03 | ECG ---
[facility] Test Date: 2024-07-30 Test Time: 13:05:13 Pat Name: INGRID ANDERSON Department: [facility] Room: Gender: F Lan Administrator: ED : 1990 Requested By: JESSICA SINCLAIR Order Number: [id number] Reading MD: Candelario Goel Measurements Intervals [place] Rate: 53 P: 0 WV: 52 QRS: 93 QRSD: 140 T: 59 QT: 474 QTc: 446 Interpretive Statements Sinus rhythm Short [place] interval Nonspecific intraventricular conduction delay Electronically Signed On 07-30-2024 22:45:00 PDT by Candelario Goel Please click the below link to view image of tracing.
--- NOTE | 2024-07-31 06:55 | ECG ---
[facility] Test Date: 2024-07-30 Test Time: 12:51:21 Pat Name: INGRID ANDERSON Department: ED Room: Gender: F Inspector: JOSEPHINE : 1990 Requested By: JESSICA SINCLAIR Order Number: [id number] Reading MD: Candelario Goel Measurements Intervals [place] Rate: 56 P: 77 MI: 133 QRS: 85 QRSD: 124 T: 53 QT: 438 QTc: 423 Interpretive Statements Sinus rhythm Nonspecific intraventricular conduction delay Borderline T abnormalities, anterior leads Electronically Signed On 08-02-2024 17:22:31 PDT by Candelario Goel Please click the below link to view image of tracing.
== END 2024-07-30 15:30 | disposition left against medical advice (07) ==
LOC: ER 12:12
DX: R07.89 Other chest pain (principal); Z86.2 Personal history of diseases of the blood and blood-forming organs and certain disorders involving the immune mechanism; Z79.899 Other long term (current) drug therapy; Z88.0 Allergy status to penicillin; Z88.8 Allergy status to other drugs, medicaments and biological substances; Z91.018 Allergy to other foods
CPT/HCPCS: 36415; 84484; 93005

== ENCOUNTER 2024-09-17 14:42 | Emergency (ER) | payer MEDICAID ==
[~2024-09-17] VITALS: Ht 162.6 cm; Wt 44.8 kg
[~2024-09-17 14:42] MED LIST changes: +IBU600T PO
--- NOTE | 2024-09-17 15:04 | ECG ---
[facility] Test Date: 2024-09-17 Test Time: 15:02:44 Pat Name: INGRID ANDERSON Department: ER Room: Gender: F Lead Generation Specialist: MADINA : 1990 Requested By: TUSHAR MOJICA Order Number: [id number] Reading MD: Candelario Goel Measurements Intervals [place] Rate: 58 P: 74 VT: 129 QRS: 83 QRSD: 105 T: 53 QT: 429 QTc: 422 Interpretive Statements Sinus rhythm Electronically Signed On 09-18-2024 21:11:29 PDT by Candelario Goel Please click the below link to view image of tracing.
[2024-09-17 15:27] LABS: Basophils # (auto) 0 10 ^3/uL (0-0.2); Basophils % (auto) 0.9 % (0.0-2.0); Eosinophils # (auto) 0.2 10 ^3/uL (0-0.8); Hemoglobin 8.3 g/dL (12.2-16.2); Lymphocytes # (auto) 1.2 10 ^3/uL (0.4-5.4); Red Cell Distribution Width 18.2 % (11.8-14.3); White Blood Cell 3.7 10^3/uL (4.4-10.8)
[2024-09-17 15:28] LABS: Eosinophils % (auto) 4.3 % (0.0-7.0); Hematocrit 27.6 % (36.0-46.0); Lymphocytes % (auto) 32.8 % (10.0-50.0); Mean Corpuscular Hemoglobin 19.2 pg (28.0-32.0); Mean Corpuscular Hgb Conc. 29.9 g/dL (32.0-36.0); Monocytes # (auto) 0.2 10 ^3/uL (0-1.3); Monocytes % (auto) 6.6 % (0.0-12.0); Neutrophils % (auto) 55.4 % (37.0-80.0); Platelet Count (auto) 368 10^3/uL (140-450); Red Blood Cells 4.31 10^6/uL (4.0-5.20)
[2024-09-17 15:42] LABS: Alanine Aminotransferase 18 U/L (7-40); Alkaline Phosphatase 46 U/L (46-116); Anion Gap 9 (5-15); Aspartate Aminotransferase 14 U/L (13-40); BUN/Creatinine Ratio 19.1 (10.0-20.0); Bilirubin, Total 0.5 mg/dL (0.2-1.0); Blood Urea Nitrogen 13 mg/dL (9-23); Calcium 9.6 mg/dL (8.7-10.4); Carbon Dioxide 26 mmol/L (20-31); Chloride 105 mmol/L (98-107); Potassium 3.7 mmol/L (3.5-5.1); Sodium 140 mmol/L (136-145); Total Protein 7.6 g/dL (5.7-8.2)
[2024-09-17 15:45] LABS: Albumin 5.1 g/dL (3.2-4.8); Glucose 120 mg/dL (74-106)
--- NOTE | 2024-09-17 16:02 | ED.PDOC ---
History of Present Illness HPI Comments 34y F who presents to the ED for chief complaint of abnormal labs. - pt states she was at PCP today and was presented labs which showed pt has low hemoglobin and told to come to the ED for possible blood transfusion - pt states her blood draw was in August 2024 and states she received results today - pt otherwise asymptomatic and denies chest pain, shortness of breath or any associated symptoms -pt states she has received blood transfusions in the past and no identifying cause has been found - pt otherwise denies any other symptoms at this time Patient denies any heavy menstrual cycles. PMH: seizures, anemia, PSH: tonsils, c-sections, ear and nose surgery Meds: denies Allergies: Benadryl social history: denies ETOH use, denies tobacco use, denies drug use HPI: Poor Historian. Past Medical History: Past Surgical History: REVIEW OF SYSTEMS: CONSTITUTIONAL: Denies acute: fever, diaphoresis, chills, generalized weakness. HEAD: Denies acute: headache, photophobia Eyes: Denies acute: Double vision, vision loss, eye pain, eye discharge. EARS: Denies acute: tinnitus, hearing loss, ear discharge, ear pain, THROAT: Denies acute: sore throat, swelling, difficulty swallowing , pain with swallowing, change in voice. NECK: Denies acute: neck pain, neck swelling, stiff neck. HEART: Denies acute : chest pain, palpitations, LUNGS: Denies acute: SOB, wheezing, cough, hemoptysis ABDOMEN: Denies acute: abdominal pain, Nausea, Vomiting, diarrhea, melena , hematemesis, hematochezia SKIN: Denies acute: rash, redness, lesions, itchiness. EXTREMITIES: Denies acute: calf pain, numbness, tingling, weakness, denies pain in extremity. Denies acute: Low back pain. Neuro: Denies acute: focal neurological deficit, motor or sensory focal neurological deficit, tremors, seizure like activity, confusion, dizziness, change in mental status, loss of bowel or bladder function, cauda equina like symptoms. : Denies acute: dysuria, hematuria, flank pain, increase in urinary frequency. PSYCH: Denies acute: hallucination, suicidal ideation, homicidal ideation. FEMALE: Denies acute: abnormal vaginal bleeding, foul odor, unusual discharge. PHYSICAL EXAM: General: -----no---acute distress, awake and alert. Head: normocephalic, atraumatic. Neck: supple, trachea is midline, no swelling. Throat: Normal phonation. Eyes:, no erythema, no purulent discharge, no proptosis, no icterus. Heart: regular rate, regular rhythm, no significant murmur appreciated. Lungs: no apparent respiratory distress, Able to speak in full sentences. No wheezing, no rhonchi, no crackles. No stridors Clear to auscultation bilaterally. Abdomen: non tender to palpation, non distended, soft, no guarding, no rebound, + bowel sounds. Neuro: Awake, Alert, oriented to name, self, situation, follows commands GCS=15. Speech is normal. Skin: no petechia, no purpura, no cyanosis, non-pale, not jaundice. Lower extremities: --no - Pitting edema no deformity, no focal swelling, no calf TTP. Makes eye contact. moves all four extremities. Face: no apparent facial droop. Ambulating in the ED independently. ED COURSE: Chief Complaint: Abnormal LAB's Time Seen by MD: 16:00 Primary Care Provider: ANTOLIN Garrido Notes: Medications, Allergies Allergies: Coded Allergies: Diphenhydramine (Verified Allergy, Severe, 04/09/22) Avocado (Verified Allergy, Mild, 04/09/22) itchy throat Penicillins (Verified Allergy, Unknown, 04/27/24) Uncoded Allergies: nuts (Allergy, Mild, 07/16/20) itching Home Meds Active Scripts Ibuprofen Micronized (MOTRIN TABLET) 600 Mg Tb, 600 MG PO TID PRN for 3 Days, #9 TAB *Black box warning-NSAIDS can increase risk of [place] & hypertension, GI irritation, ulceration, bleed, perferation. Do not use post cardiac surgery. Use short duration/lowest effective dose. Prov:JESSICA SINCLAIR MD 07/30/24 Ciprofloxacin (Cipro) 500 Mg/5 Ml Sari, 500 MG PO BID for 7 Days, #70 ML Prov:NGUYỄN ESPINOZA MD 04/27/24 Famotidine (PEPCID TABLET) 20 Mg Tb, 1 TAB PO BID PRN for 10 Days, #20 TAB 5 Refills Prov:BRENT BRENNAN MD 04/04/24 Ondansetron Odt 4MG Tab (ZOFRAN PO) 4 Mg Tb, 4 MG PO Q4HPRN PRN for 7 Days, #35 TAB ODT TAB-DISSOLVE IN MOUTH, THEN SWALLOW Prov:BRENT BRENNAN MD 04/04/24 Cyclobenzaprine Hcl (Cyclobenzaprine Hcl) 5 Mg Tab, 1 TAB PO QPM PRN, #30 TAB Prov:DEIDRA DAMON 11/20/23 Levetiracetam (Keppra) 500 Mg Tab, 1 TAB PO BID, #60 TAB 5 Refills Prov:JI SINGER MD 04/09/22 Reported Medications Magnesium Oxide (MAGNESIUM OXIDE) 400 Mg Tab, 1 TAB PO DAILY, #30 TAB 5 Refills 09/23/21 Cyanocobalamin (B-12) 2,000 Mcg Tab, 2000 MCG PO, TAB 09/23/21 Information Source: Patient Past Medical History PAST MEDICAL HISTORY: Anemia, Anxiety, Gallstones, Seizures, UTI'S 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 Was a procedure done?: No Differential Dx Considerations may include: Bleeding, chronic anemia, chronic disease, per deficiency, X-Ray, Labs, Meds, VS Vital Signs Date Time Temp Pulse Resp B/P (MAP) Pulse Ox O2 Delivery O2 Flow Rate FiO2 09/17/24 17:50 58 16 98 Room Air 09/17/24 17:50 97.7 58 16 93/53 (66) 98 97.7 09/17/24 15:02 58 09/17/24 15:00 98.0 67 18 103/58 (73) 97 98.0 Lab Test 09/17/24 15:12 09/17/24 14:49 Range/Units White Blood Count 3.7 L 4.4-10.8 10^3/uL Red Blood Count 4.31 4.0-5.20 10^6/uL Hemoglobin 8.3 L 12.2-16.2 g/dL Hematocrit 27.6 L 36.0-46.0 % Mean Corpuscular Volume 64.0 L 80.0-100.0 fL Mean Corpuscular Hemoglobin 19.2 L 28.0-32.0 pg Mean Corpuscular Hemoglobin Concent 29.9 L 32.0-36.0 g/dL Red Cell Distribution Width 18.2 H 11.8-14.3 % Platelet Count 368 140-450 10^3/uL Mean Platelet Volume 7.0 6.9-10.8 fL Neutrophils (%) (Auto) 55.4 37.0-80.0 % Lymphocytes (%) (Auto) 32.8 10.0-50.0 % Monocytes (%) (Auto) 6.6 0.0-12.0 % Eosinophils (%) (Auto) 4.3 0.0-7.0 % Basophils (%) (Auto) 0.9 0.0-2.0 % Neutrophils # (Auto) 2.0 1.6-8.6 10 ^3/uL Lymphocytes # (Auto) 1.2 0.4-5.4 10 ^3/uL Monocytes # (Auto) 0.2 0-1.3 10 ^3/uL Eosinophils # (Auto) 0.2 0-0.8 10 ^3/uL Basophils # (Auto) 0 0-0.2 10 ^3/uL Nucleated Red Blood Cells 0.0 % Platelet Estimate Adequate Hypochromasia (manual) Marked Anisocytosis (manual) Slight Microcytosis Marked Sodium Level 140 136-145 mmol/L Potassium Level 3.7 3.5-5.1 mmol/L Chloride Level 105 98-107 mmol/L Carbon Dioxide Level 26 20-31 mmol/L Anion Gap 9 5-15 Blood Urea Nitrogen 13 9-23 mg/dL Creatinine 0.68 0.550-1.02 mg/dL Glomerular Filtration Rate Calc 118 >90 mL/min BUN/Creatinine Ratio 19.1 10.0-20.0 Serum Glucose 120 H 74-106 mg/dL Lactic Acid Level 1.1 0.4-2.0 mmol/L Calcium Level 9.6 8.7-10.4 mg/dL Total Bilirubin 0.5 0.2-1.0 mg/dL Aspartate Amino Transferase (AST) 14 13-40 U/L Alanine Aminotransferase (ALT) 18 7-40 U/L Alkaline Phosphatase 46 46-116 U/L Total Protein 7.6 5.7-8.2 g/dL Albumin 5.1 H 3.2-4.8 g/dL Urine Color Colorless Yellow Urine Clarity Clear Clear Urine pH 6.5 5.0-9.0 Urine Specific [place] 1.005 1.001-1.035 Urine Protein Negative Negative Urine Ketones Negative Negative Urine Blood Negative Negative /uL Urine Nitrite Negative Negative Urine Bilirubin Negative Negative Urine Urobilinogen Normal Negative mg/dL Urine Leukocyte Esterase Negative Negative /uL Urine RBC <1 0 - 4 /hpf Urine Microscopic WBC < 1 0-5 /HPF Urine Squamous Epithelial Cells Few <5 /hpf Urine Bacteria Few H None Seen /hpf Urine Glucose Normal Normal mg/dL Urine Test Negative Negative Time of 1ST Reevaluation: 23:13 Reevaluation 1ST: Improved Patient Education/Counseling: Diagnosis, Treatment Family Education/Counseling: No Family Present Comments Patient presented with the above HPI.--reported anemia----workup was initiated. patient was found with the above mentioned diagnosis. Patient has no symptoms. the following medications were ordered: please refer to order lists of meds and tests obtained by myself Dr. Galdamez. Patient has been observed in the ED adequate length of time to insure improvement/stability. Escalation of care considered: Consideration of escalation to observation or admission Patient was found to be hypotensive. She stated that this is normal low blood pressure for her. I ordered fluids. Patient eloped. All the reports of any imaging studies that were ordered by myself were reviewed by myself. Departure 1 Departure Time of Disposition: 16:28 Impression: Primary Impression: Anemia Additional Impressions: Hypotension Eloped from emergency department Disposition: 07 LEFT AWOL/ELOPED Condition: Stable Additional Instructions: Patient eloped Discharged With: Self Critical Care Note Critical Care Time?: No I personally scribed for LIN GALDAMEZ DO ([email or web address]) on 09/17/24 at 16:02. Electronically submitted by Alondra Recio ([email or web address]). LIN GALDAMEZ DO September 17, 2024 16:02
[2024-09-17 16:15] LABS: Anisocytosis Slight; Hypochromia Marked; Platelet Estimate Adequate
[2024-09-17 16:18] LABS: Urine Bacteria FEW /hpf (None Seen); Urine Blood Negative /uL (Negative); Urine Clarity Clear (Clear); Urine Color Colorless (Yellow); Urine Protein, UAD Negative (Negative); Urine Specific Gravity 1.005 (1.001-1.035); Urine Squamous Epithelial Cell FEW /hpf (<5); Urine Urobilinogen Normal (Negative); Urine WBC < 1 /HPF (0-5); Urine pH 6.5 (5.0-9.0)
[2024-09-17 17:50] VITALS: BP 93/53; PULSE 58; RESP 16; TEMP 97.7; O2SAT 98
[2024-09-17] MEDS ORDERED: SODIUM CHLORIDE 0.9% 1,000 ML IV ONE (18:00)
== END 2024-09-17 18:36 | disposition left against medical advice (07) ==
LOC: ER 14:42
DX: D64.9 Anemia, unspecified (principal); I95.9 Hypotension, unspecified; F41.9 Anxiety disorder, unspecified; Z79.899 Other long term (current) drug therapy; Z88.0 Allergy status to penicillin; Z88.8 Allergy status to other drugs, medicaments and biological substances; Z91.018 Allergy to other foods
CPT/HCPCS: 36415; 80053; 81001; 81025; 83605; 85025; 86850; 86900; 86901; 93005

== ENCOUNTER 2024-10-26 12:10 | Emergency (ER) | payer MEDICAID ==
[~2024-10-26] VITALS: Ht 162.6 cm; Wt 53.6 kg
[2024-10-26] MEDS ORDERED: HYDR-4902 PO (12:22)
[2024-10-26] MEDS ORDERED: ACYC400T16 PO (12:22)
--- NOTE | 2024-10-26 12:25 | ED.PDOC ---
History of Present Illness(SKN HPI Comments 34 y.o female with PMHx of seizures and anemia, presents to the ED for a chief complaint of right sided mouth pain associated with a rash that started 3-4 days ago. Patient reports being placed on antibiotics yesterday at a clinic but states today woke up with worsening pain that inhibits her to eat or drink. Patient denies any sore, fever, chills, nausea, vomiting. Time Seen by MD: 12:17 Primary Care Provider: ANTOLIN History of Present Illness: Nurses Notes, Medications, Allergies Allergies: Coded Allergies: Diphenhydramine (Verified Allergy, Severe, 04/09/22) Avocado (Verified Allergy, Mild, 04/09/22) itchy throat Penicillins (Verified Allergy, Unknown, 04/27/24) Uncoded Allergies: nuts (Allergy, Mild, 07/16/20) itching Home Meds Active Scripts Hydrocodone-Acetaminophen (Hydrocodone Bitartrate/AC 5-325 mg) 1 Tab Tab, 1 TAB PO Q8HP PRN for 5 Days, #15 TAB Prov:JI SINGER MD 10/26/24 Acyclovir (ZOVIRAX TABLET) 400 Mg Tb, 1 TAB PO BID, #60 TAB 3 Refills Prov:JI SINGER MD 10/26/24 Ibuprofen Micronized (MOTRIN TABLET) 600 Mg Tb, 600 MG PO TID PRN for 3 Days, #9 TAB *Black box warning-NSAIDS can increase risk of [place] & hypertension, GI irritation, ulceration, bleed, perferation. Do not use post cardiac surgery. Use short duration/lowest effective dose. Prov:JESSICA SINCLAIR MD 07/30/24 Ciprofloxacin (Cipro) 500 Mg/5 Ml Sari, 500 MG PO BID for 7 Days, #70 ML Prov:NGUYỄN ESPINOZA MD 04/27/24 Famotidine (PEPCID TABLET) 20 Mg Tb, 1 TAB PO BID PRN for 10 Days, #20 TAB 5 Refills Prov:BRENT BRENNAN MD 04/04/24 Ondansetron Odt 4MG Tab (ZOFRAN PO) 4 Mg Tb, 4 MG PO Q4HPRN PRN for 7 Days, #35 TAB ODT TAB-DISSOLVE IN MOUTH, THEN SWALLOW Prov:BRENT BRENNAN MD 04/04/24 Cyclobenzaprine Hcl (Cyclobenzaprine Hcl) 5 Mg Tab, 1 TAB PO QPM PRN, #30 TAB Prov:DEIDRA DAMON 11/20/23 Levetiracetam (Keppra) 500 Mg Tab, 1 TAB PO BID, #60 TAB 5 Refills Prov:JI SINGER MD 04/09/22 Reported Medications Magnesium Oxide (MAGNESIUM OXIDE) 400 Mg Tab, 1 TAB PO DAILY, #30 TAB 5 Refills 09/23/21 Cyanocobalamin (B-12) 2,000 Mcg Tab, 2000 MCG PO, TAB 09/23/21 Information Source: Patient Mode of Arrival: Ambulatory Severity: Moderate Timing: Days Duration: Since onset Location: Face Mechanism: Spontaneous Onset Developed: Rash Object: None Condition of Object: None Wound Type: None Associated Signs and Symptoms: Redness, Pain Past Medical History PAST MEDICAL HISTORY: Anemia, Anxiety, Gallstones, Seizures, UTI'S 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 Pertinent CLIENT SERVICES VICE PRESIDENT History Family History Family History: Reviewed,noncontributory to illness, Unknown Social History Smoker: Non-Smoker Alcohol: Denies ETOH Use Drugs: Denies Drug Use Lives In: Home Constitutional: denies: chills, diaphoresis, fatigue, fever, malaise, sweats, weakness, others EENTM: denies: blurred vision, double vision, ear bleeding, ear discharge, ear drainage, ear pain, ear ringing, eye pain, eye redness, hearing loss, mouth pain, mouth swelling, nasal discharge, nose bleeding, nose congestion, nose pain, photophobia, tearing, throat pain, throat swelling, voice changes, others Respiratory: denies: cough, hemoptysis, orthopnea, SOB at rest, shortness of breath, SOB with excertion, stridor, wheezing, others Cardiovascular: denies: chest pain, dizzy spells, diaphoresis, Dyspnea on exertion, edema, irregular heart beat, left arm pain, lightheadedness, palpitations, PND, syncope, others Gastrointestinal: denies: abdomen distended, abdominal pain, blood streaked bowels, constipated, diarrhea, dysphagia, difficulty swallowing, hematemesis, melena, nausea, poor appetite, poor fluid intake, rectal bleeding, rectal pain, vomiting, others Genitourinary: denies: abnormal vagina bleeding, burning, dyspareunia, dysuria, flank pain, frequency, hematuria, incontinence, pain, , vagina discharge, urgency, others Neurological: denies: dizziness, fainting, headache, left sided numbness, left sided weakness, numbness, paresthesia, pre-existing deficit, right sided numbness, right sided weakness, seizure, speech problems, tingling, tremors, weakness, others Musculoskeletal: denies: back pain, gout, joint pain, joint swelling, muscle pain, muscle stiffness, neck pain, others Integumetry: reports: rash (right sided mouth pain and rashes ); denies: bruises, change in color, change in hair/nails, dryness, laceration, lesions, l umps, wounds Allergic/Immunocompromised: denies: Difficulty Healing, Frequent Infections, Hives, Itching, others Hematologic/Lymphatic: denies: anemia, blood clots, easy bleeding, easy bruising, swollen glands, others Endocrine: denies: excessive hunger, excessive sweating, excessive thirst, excessive urination, flushing, intolerance to cold, intolerance to heat, unexplained weight gain, unexplained weight loss, others Psychiatric: denies: anxiety, bipolar disorder, depression, hopeless, panic disorder, schizophrenia, sleepless, suicidal, others All Other Systems: Reviewed and Negative Physical Exam General Appearance: Mild Distress HEENT: Normal ENT Inspection, Pharynx Normal, TMs Normal Neck: Full Range of Motion, Non-Tender, Normal, Normal Inspection Respiratory: Chest Non-Tender, Lungs Clear, No Accessory Muscle Use, No Respiratory Distress, Normal Breath Sounds Cardiovascular: No Edema, No JVD, No Murmur, No Gallop, Normal Peripheral Pulses, Regular Rate/Rhythm Breast Exam: Deferred Gastrointestinal: No Organomegaly, Non Tender, No Pulsatile Mass, Normal Bowel Sounds, Soft Genitalia: Deferred Pelvic: Deferred Rectal: Deferred Extremities: No calf tenderness, Normal capillary refill, Normal inspection, Normal range of motion, Non-tender, No pedal edema Musculoskeletal : Apperance: Normal Neurologic: Alert, [place] II-XII nml as Tested, No Motor Deficits, Normal Affect, Normal Mood, No Sensory Deficits Cerebellar Function: Normal Reflexes: Normal Skin: Dry, Normal Color, Rash (There is a rash to the right facial area that is stops at midline and is tender. This is consistent with herpes zoster), Warm Lymphatic: No Adenopathy Was a procedure done? Was a procedure done?: No Differential Diagnosis (INTG) Differential Diagnosis: Contact Dermatitis, Herpes Zoster/Simplex, Rosacea, Viral exanthema X-Ray, Labs, Meds, VS Vital Signs Date Time Temp Pulse Resp B/P (MAP) Pulse Ox O2 Delivery O2 Flow Rate FiO2 10/26/24 12:24 97.9 98 16 102/68 (79) 100 97.9 The patient is being discharged The patient will follow up with the primary care doctor The patient will return to the emergency department's condition worsens The patient understands and agrees with the management The patient was given a prescription of acyclovir and [place] Time of 1ST Reevaluation: 12:28 Reevaluation 1ST: Unchanged Patient Education/Counseling: Diagnosis, Treatment, Prognosis, Need For Follow Up Family Education/Counseling: No Family Present Departure 1 Departure Time of Disposition: 12:28 Impression: Primary Impression: Herpes zoster Qualified Codes: B02.9 - Zoster without complications Disposition: 01 HOME / SELF CARE / HOMELESS Condition: Fair e-Prescriptions Hydrocodone-Acetaminophen (Hydrocodone Bitartrate/AC 5-325 mg) 1 Tab Tab 1 TAB PO Q8HP PRN for 5 Days, #15 TAB Prov: JI SINGER MD 10/26/24 Acyclovir (ZOVIRAX TABLET) 400 Mg Tb 1 TAB PO BID, #60 TAB 3 Refills Prov: JI SINGER MD 10/26/24 Discharged With: Self Critical Care Note Critical Care Time?: No Stability Stability form required: No I personally scribed for JI SINGER MD ([email or web address]) on 10/26/24 at 12:25. Electronically submitted by Shruthi Velásquez ([facility]). JI SINGER MD Oct 26, 2024 12:25
[2024-10-26 13:04] VITALS: BP 99/62; PULSE 78; RESP 18; TEMP 99.2; O2SAT 100
== END 2024-10-26 13:05 | disposition home or self-care (01) ==
LOC: ER 12:22
DX: B02.9 Zoster without complications (principal); F41.9 Anxiety disorder, unspecified; Z88.0 Allergy status to penicillin; Z79.899 Other long term (current) drug therapy

== ENCOUNTER 2024-10-27 23:27 | Emergency (ER) | payer MEDICAID ==
[~2024-10-27] VITALS: Ht 162.6 cm; Wt 46.0 kg
[~2024-10-27 23:27] MED LIST changes: +ACYC400T16 PO; +HYDR-4902 PO
[2024-10-28 00:04] VITALS: BP 99/72; PULSE 82; RESP 19; TEMP 99.1; O2SAT 99
--- NOTE | 2024-10-28 00:07 | ED.PDOC ---
History of Present Illness(SKN HPI Comments 34 year old female presents to ER with complaints of rash x 4 days. Patient reports she's been experiencing a painful red vesicular rash to right side of face with associated intermittent right sided headache x 4 days. Notes she was seen and evaluated for her symptoms in ER here 2 days ago, diagnosed with shingles and prescribed acylovir and [place] that she's been taking as directed. Patient denies any worsening symptoms but states she's had no improvement in pain prompting her to come back to ER. She rates her current right sided facial pain a 10/10 and presents to ER ambulatory on arrival, alert and oriented x4, in no distress. Denies fever, eye pain/vision changes, earache, numbness/tingling, n/v or any further symptoms/complaints Chief Complaint: Rash Time Seen by MD: 23:30 Primary Care Provider: ANTOLIN History of Present Illness: Nurses Notes, Medications, Allergies Allergies: Coded Allergies: Diphenhydramine (Verified Allergy, Severe, 04/09/22) Avocado (Verified Allergy, Mild, 04/09/22) itchy throat Penicillins (Verified Allergy, Unknown, 04/27/24) Uncoded Allergies: nuts (Allergy, Mild, 07/16/20) itching Home Meds Active Scripts Hydrocodone-Acetaminophen (Hydrocodone Bitartrate/AC 5-325 mg) 1 Tab Tab, 1 TAB PO Q8HP PRN for 5 Days, #15 TAB Prov:JI SINGER MD 10/26/24 Acyclovir (ZOVIRAX TABLET) 400 Mg Tb, 1 TAB PO BID, #60 TAB 3 Refills Prov:JI SINGER MD 10/26/24 Ibuprofen Micronized (MOTRIN TABLET) 600 Mg Tb, 600 MG PO TID PRN for 3 Days, #9 TAB *Black box warning-NSAIDS can increase risk of [place] & hypertension, GI irritation, ulceration, bleed, perferation. Do not use post cardiac surgery. Use short duration/lowest effective dose. Prov:JESSICA SINCLAIR MD 07/30/24 Ciprofloxacin (Cipro) 500 Mg/5 Ml Sari, 500 MG PO BID for 7 Days, #70 ML Prov:NGUYỄN ESPINOZA MD 04/27/24 Famotidine (PEPCID TABLET) 20 Mg Tb, 1 TAB PO BID PRN for 10 Days, #20 TAB 5 Refills Prov:BRENT BRENNAN MD 04/04/24 Ondansetron Odt 4MG Tab (ZOFRAN PO) 4 Mg Tb, 4 MG PO Q4HPRN PRN for 7 Days, #35 TAB ODT TAB-DISSOLVE IN MOUTH, THEN SWALLOW Prov:BRENT BRENNAN MD 04/04/24 Cyclobenzaprine Hcl (Cyclobenzaprine Hcl) 5 Mg Tab, 1 TAB PO QPM PRN, #30 TAB Prov:DEIDRA DAMON 11/20/23 Levetiracetam (Keppra) 500 Mg Tab, 1 TAB PO BID, #60 TAB 5 Refills Prov:JI SINGER MD 04/09/22 Reported Medications Magnesium Oxide (MAGNESIUM OXIDE) 400 Mg Tab, 1 TAB PO DAILY, #30 TAB 5 Refills 09/23/21 Cyanocobalamin (B-12) 2,000 Mcg Tab, 2000 MCG PO, TAB 09/23/21 Information Source: Patient Mode of Arrival: Ambulatory Past Medical History PAST MEDICAL HISTORY: Anemia, Anxiety, Gallstones, Seizures, UTI'S 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 CONTRACT 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 History Family History Family History: Unknown Social History Smoker: Non-Smoker Alcohol: Denies ETOH Use Drugs: Denies Drug Use Lives In: Home Constitutional: denies: chills, diaphoresis, fatigue, fever, malaise, sweats, weakness, others EENTM: denies: blurred vision, double vision, ear bleeding, ear discharge, ear drainage, ear pain, ear ringing, eye pain, eye redness, hearing loss, mouth pain, mouth swelling, nasal discharge, nose bleeding, nose congestion, nose pain, photophobia, tearing, throat pain, throat swelling, voice changes, others Respiratory: denies: cough, hemoptysis, orthopnea, SOB at rest, shortness of breath, SOB with excertion, stridor, wheezing, others Cardiovascular: denies: chest pain, dizzy spells, diaphoresis, Dyspnea on exertion, edema, irregular heart beat, left arm pain, lightheadedness, palpitations, PND, syncope, others Genitourinary: denies: abnormal vagina bleeding, burning, dyspareunia, dysuria, flank pain, frequency, hematuria, incontinence, pain, , vagina discharge, urgency, others Neurological: reports: others (As stated in HPI) Musculoskeletal: denies: back pain, gout, joint pain, joint swelling, muscle pain, muscle stiffness, neck pain, others Integumetry: reports: others (As stated in HPI) Allergic/Immunocompromised: denies: Difficulty Healing, Frequent Infections, Hives, Itching, others Hematologic/Lymphatic: denies: anemia, blood clots, easy bleeding, easy bruisi ng, swollen glands, others Endocrine: denies: excessive hunger, excessive sweating, excessive thirst, exce ssive urination, flushing, intolerance to cold, intolerance to heat, unexplained weight gain, unexplained weight loss, others Psychiatric: denies: anxiety, bipolar disorder, depression, hopeless, panic disorder, schizophrenia, sleepless, suicidal, others Physical Exam General Appearance: No Apparent Distress HEENT: Normal ENT Inspection, PERRL/EOMI, Pharynx Normal, TMs Normal Neck: Full Range of Motion, Non-Tender, Normal Respiratory: Chest Non-Tender, Lungs Clear, No Accessory Muscle Use, No Respiratory Distress, Normal Breath Sounds Cardiovascular: No Murmur, No Gallop, Regular Rate/Rhythm Breast Exam: Deferred Gastrointestinal: NOT DONE Genitalia: Deferred Pelvic: Deferred Rectal: Deferred Extremities: Normal capillary refill, Normal range of motion Neurologic: Alert, handyperson II-XII nml as Tested, No Motor Deficits, Normal Affect, Normal Mood, No Sensory Deficits Cerebellar Function: Normal Reflexes: Normal Skin: Dry, Warm, Other (Erythemic vesiculopapular rash following V3 dermatone on right side of face that does not cross midline ) Lymphatic: No Adenopathy Was a procedure done? Was a procedure done?: No Sedation Sedation?: No Differential Diagnosis (INTG) Differential Diagnosis: Abrasion Differential Diagnosis: Abscess Differential Diagnosis: Cellulitis X-Ray, Labs, Meds, VS Vital Signs Date Time Temp Pulse Resp B/P (MAP) Pulse Ox O2 Delivery O2 Flow Rate FiO2 10/28/24 00:04 Room Air* 0 21 10/28/24 00:04 99.1 82 19 99/72 (81) 99 99.1 [place] 5/325 mg P.O. ordered Zofran 4 mg p.o. ordered Previous chart visit reviewed Advised to continue acyclovir and [place] as prescribed Advised to follow up with PCP in 1-2 days Patient verbalized understanding and agreeable with current plan of care Advised to return to ER immediately if symptoms worsen Time of 1ST Reevaluation: 23:40 Reevaluation 1ST: N/A Patient Education/Counseling: Diagnosis, Treatment, Prognosis, Need For Follow Up Family Education/Counseling: No Family Present SEPSIS Sepsis Screen Orders/Vitals/Labs Physician Orders Hydrocodone-Acet 5/325mg Tab ([place] 5/32 (10/28/24 00:15) Ondansetron Po (Zofran Po) (10/28/24 00:15) Vital Signs Date Time Temp Pulse Resp B/P (MAP) Pulse Ox O2 Delivery O2 Flow Rate FiO2 10/28/24 00:04 Room Air* 0 21 10/28/24 00:04 99.1 82 19 99/72 (81) 99 99.1 Departure 1 Departure Time of Disposition: 00:02 Impression: Primary Impression: Herpes zoster Qualified Codes: B02.9 - Zoster without complications Disposition: 01 HOME / SELF CARE / HOMELESS Condition: Stable Discharged With: Friend Critical Care Note Critical Care Time?: No Stability Stability form required: No Heart Score Heart Score: Heart Score Response (Comments) Value History N/A 0 EKG N/A 0 Age N/A 0 Risk Factors N/A 0 Troponin N/A 0 Total 0 RAINA PAINTER Oct 28, 2024 00:07
[2024-10-28] MEDS: ONDANSETRON ODT 4 MG TAB PO ONE (00:12)
[2024-10-28] MEDS: HYDROcodone-ACET 5/325MG TAB PO ONE (00:13)
== END 2024-10-28 00:18 | disposition home or self-care (01) ==
LOC: ER 23:27
DX: B02.9 Zoster without complications (principal); F41.9 Anxiety disorder, unspecified; Z87.440 Personal history of urinary (tract) infections; Z98.890 Other specified postprocedural states; Z86.2 Personal history of diseases of the blood and blood-forming organs and certain disorders involving the immune mechanism; Z88.0 Allergy status to penicillin; Z79.624 Long term (current) use of inhibitors of nucleotide synthesis; Z79.899 Other long term (current) drug therapy; Z91.018 Allergy to other foods
CPT/HCPCS: 99283; Q0162

== ENCOUNTER 2024-11-01 18:50 | Emergency (ER) | payer MEDICAID ==
[~2024-11-01] VITALS: Ht 162.6 cm; Wt 44.0 kg
--- NOTE | 2024-11-01 19:20 | ED.PDOC ---
GI ASSESSMENT HPI Comments 34-year-old female who came to ER due to rectal bleeding. Patient states she was having abdominal pain last night, and when she went to the bathroom this morning, she noted bright red/dark red blood with clots admixed with her stools. States she was constipated earlier then started having diarrhea. Denies any abdominal pain, nausea or vomiting. Denies any history of GI bleed. Chief Complaint: GI bleed Time Seen by MD: 19:18 Primary Care Provider: ANTOLIN Reviewed Notes: Nurses Notes Allergies: Coded Allergies: Diphenhydramine (Verified Allergy, Severe, 04/09/22) Avocado (Verified Allergy, Mild, 04/09/22) itchy throat Penicillins (Verified Allergy, Unknown, 04/27/24) Uncoded Allergies: nuts (Allergy, Mild, 07/16/20) itching Home Meds Active Scripts Hydrocodone-Acetaminophen (Hydrocodone Bitartrate/AC 5-325 mg) 1 Tab Tab, 1 TAB PO Q8HP PRN for 5 Days, #15 TAB Prov:JI SINGER MD 10/26/24 Acyclovir (ZOVIRAX TABLET) 400 Mg Tb, 1 TAB PO BID, #60 TAB 3 Refills Prov:JI SINGER MD 10/26/24 Ibuprofen Micronized (MOTRIN TABLET) 600 Mg Tb, 600 MG PO TID PRN for 3 Days, #9 TAB *Black box warning-NSAIDS can increase risk of [place] & hypertension, GI irritation, ulceration, bleed, perferation. Do not use post cardiac surgery. Use short duration/lowest effective dose. Prov:JESSICA SINCLAIR MD 07/30/24 Ciprofloxacin (Cipro) 500 Mg/5 Ml Sari, 500 MG PO BID for 7 Days, #70 ML Prov:NGUYỄN ESPINOZA MD 04/27/24 Famotidine (PEPCID TABLET) 20 Mg Tb, 1 TAB PO BID PRN for 10 Days, #20 TAB 5 Refills Prov:BRENT BRENNAN MD 04/04/24 Ondansetron Odt 4MG Tab (ZOFRAN PO) 4 Mg Tb, 4 MG PO Q4HPRN PRN for 7 Days, #35 TAB ODT TAB-DISSOLVE IN MOUTH, THEN SWALLOW Prov:BRENT BRENNAN MD 04/04/24 Cyclobenzaprine Hcl (Cyclobenzaprine Hcl) 5 Mg Tab, 1 TAB PO QPM PRN, #30 TAB Prov:DEIDRA DAMON 11/20/23 Levetiracetam (Keppra) 500 Mg Tab, 1 TAB PO BID, #60 TAB 5 Refills Prov:JI SINGER MD 04/09/22 Reported Medications Magnesium Oxide (MAGNESIUM OXIDE) 400 Mg Tab, 1 TAB PO DAILY, #30 TAB 5 Refills 09/23/21 Cyanocobalamin (B-12) 2,000 Mcg Tab, 2000 MCG PO, TAB 09/23/21 Information Source: Patient Mode of Arrival: Ambulatory Timing: Hours Duration: Since onset Quality: None Vomitus: None Stool: Blood Streaked Severity: Moderate Pain Location: None Associated sign and symptoms: Blood in Stool Review of Systems REVIEW OF SYSTEMS: No fever, no chills, or fatigue HEENT: No sore throat, no earache, no congestion, no neck pain. Cardiac: No chest pain. No palpitations. Lungs: No shortness of breath, no cough. GI: No nausea, no vomiting, no diarrhea, no constipation, no abdominal pain, (+) rectal bleeding : No dysuria, frequency, or urgency. No hematuria. Musculoskeletal: No joint pain , no joint swelling, no extremity edema. Skin: No rash, no itching. Neuro: No headache, no dizziness, no weakness Vital Signs Vital Signs Date Time Temp Pulse Resp B/P (MAP) Pulse Ox O2 Delivery O2 Flow Rate FiO2 11/01/24 19:52 98.7 67 18 96/59 (71) 97 98.7 Physical Exam General: Awake, alert and oriented. No acute distress. Skin: Skin in warm, dry and intact. Appropriate color for ethnicity. Nailbeds pink with no cyanosis. HEENT: The head is normocephalic and atraumatic. Conjunctivae are clear without exudates or hemorrhage. Sclera is non-icteric. EOM are intact. No signs of nystagmus. Eyelids are normal in appearance without swelling or lesions. Oral mucosa is pink and moist Neck: The neck is supple with normal range of motion. No JVD. Cardiac: Heart rate and rhythm are normal. No murmurs, gallops, or rubs are auscultated. Respiratory: No signs of respiratory distress. Lung sounds are clear in all lobes bilaterally without rales, rhonchi, or wheezes. Abdominal: Abdomen is soft, non-tender without distention. Bowel sounds are present and normoactive in all four quadrants. : Rectal exam-No active rectal bleeding, no tear or fissure, no hemorrhoids Neurological: The patient is awake, alert and oriented to person, place, and time with normal speech. Speech is clear. There is no facial asymmetry. Psychiatric: Appropriate mood and affect. Good judgement and insight. 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 Was a procedure done?: No GI differential Dx Differential Diagnosis: Constipation, Diverticular disease, Gastritis/PUD, Gastroenteritis, GI hemorrhage, Inflammatory BD, Anemia, Other (Hemorrhoids) X-Ray, Labs, Meds, VS Vital Signs Date Time Temp Pulse Resp B/P (MAP) Pulse Ox O2 Delivery O2 Flow Rate FiO2 11/01/24 19:52 98.7 67 18 96/59 (71) 97 98.7 Lab Test 11/01/24 19:26 Range/Units White Blood Count 3.6 L 4.4-10.8 10^3/uL Red Blood Count 4.62 4.0-5.20 10^6/uL Hemoglobin 10.8 L 12.2-16.2 g/dL Hematocrit 33.9 L 36.0-46.0 % Mean Corpuscular Volume 73.4 L 80.0-100.0 fL Mean Corpuscular Hemoglobin 23.5 L 28.0-32.0 pg Mean Corpuscular Hemoglobin Concent 32.0 32.0-36.0 g/dL Red Cell Distribution Width 27.4 H 11.8-14.3 % Platelet Count 279 140-450 10^3/uL Mean Platelet Volume 7.1 6.9-10.8 fL Neutrophils (%) (Auto) 48.9 37.0-80.0 % Lymphocytes (%) (Auto) 39.0 10.0-50.0 % Monocytes (%) (Auto) 8.3 0.0-12.0 % Eosinophils (%) (Auto) 3.0 0.0-7.0 % Basophils (%) (Auto) 0.8 0.0-2.0 % Neutrophils # (Auto) 1.8 1.6-8.6 10 ^3/uL Lymphocytes # (Auto) 1.4 0.4-5.4 10 ^3/uL Monocytes # (Auto) 0.3 0-1.3 10 ^3/uL Eosinophils # (Auto) 0.1 0-0.8 10 ^3/uL Basophils # (Auto) 0 0-0.2 10 ^3/uL Nucleated Red Blood Cells 0.1 % Prothrombin Time 11.1 9.3-11.8 sec Prothrombin Time INR 1.05 0.9-1.15 Sodium Level 141 136-145 mmol/L Potassium Level 3.7 3.5-5.1 mmol/L Chloride Level 106 98-107 mmol/L Carbon Dioxide Level 27 20-31 mmol/L Anion Gap 8 5-15 Blood Urea Nitrogen 14 9-23 mg/dL Creatinine 0.62 0.550-1.02 mg/dL Glomerular Filtration Rate Calc 121 >90 mL/min BUN/Creatinine Ratio 22.6 H 10.0-20.0 Serum Glucose 104 74-106 mg/dL Calcium Level 9.9 8.7-10.4 mg/dL Time of 1ST Reevaluation: 19:13 Reevaluation 1ST: Unchanged Patient Education/Counseling: Need For Follow Up Family Education/Counseling: No Family Present SEPSIS Sepsis Screen Vital Signs Date Time Temp Pulse Resp B/P (MAP) Pulse Ox O2 Delivery O2 Flow Rate FiO2 11/01/24 19:52 98.7 67 18 96/59 (71) 97 98.7 Laboratory Tests Test 11/01/24 19:26 White Blood Count 3.6 10^3/uL (4.4-10.8) L Departure 1 Departure Time of Disposition: 20:21 Impression: Primary Impression: Painless rectal bleeding Additional Impression: Chronic anemia Disposition: HOME / SELF CARE / HOMELESS Condition: Stable Additional Instructions: ED DISCHARGE INSTRUCTIONS Instructions: Please read all instructions provided in this packet carefully. Although you have been discharged from the Emergency Department, this does not mean that you have a "clean bill of health". No definitive diagnosis for your symptoms has been made today. It is possible that you are in the process of developing a serious illness. This is why you must return to the ED without fail if any new or worsening symptoms (especially if your symptoms include heavy rectal bleeding, lightheadedness, dizziness, chest pain, trouble breathing, abdominal pain, fever, headache, confusion, trouble seeing, or trouble walking) It is also very important that you see a primary care doctor within the next 1-3 days to follow up. If you are unable to get an appointment, return to the ED for re-evaluation. Return to the emergency department if your symptoms do not improve or worsen within the next 1-3 days. Comments I reviewed the following notes from the pt's past medical encounters: N/A The following tests were ordered, and results were reviewed by me: (See diagnostic results section) The following test were independently interpreted by me: N/A Additional information was gathered from interviewing the following independent historians: N/A I reviewed and agreed with the following test results read by other providers: N/A I discussed treatments and results with patient Decision regarding hospitalization or escalation of hospital level of care: Risks and benefits of admission for further treatment of patient's condition was considered however due to patient's stable condition patient will be discharged to follow up closely or return to care for worsening of condition or inability to follow up. Critical Care Note Critical Care Time?: No Stability Stability form required: No Heart Score Heart Score: Heart Score Response (Comments) Value History N/A 0 EKG N/A 0 Age N/A 0 Risk Factors N/A 0 Troponin N/A 0 Total 0 I personally scribed for JOVANNY REYES MD ([email or web address]) on 11/01/24 at 19:20. Electronically submitted by Connor Austin ([email or web address]). JOVANNY REYES MD Nov 01, 2024 19:20
[2024-11-01 19:43] LABS: Basophils # (auto) 0 10 ^3/uL (0-0.2); Basophils % (auto) 0.8 % (0.0-2.0); Eosinophils # (auto) 0.1 10 ^3/uL (0-0.8); Hematocrit 33.9 % (36.0-46.0); Hemoglobin 10.8 g/dL (12.2-16.2); Lymphocytes # (auto) 1.4 10 ^3/uL (0.4-5.4); Mean Corpuscular Hemoglobin 23.5 pg (28.0-32.0); Mean Corpuscular Volume 73.4 fL (80.0-100.0); Monocytes # (auto) 0.3 10 ^3/uL (0-1.3); Monocytes % (auto) 8.3 % (0.0-12.0); Neutrophils # (auto) 1.8 10 ^3/uL (1.6-8.6); Neutrophils % (auto) 48.9 % (37.0-80.0); Nucleated Red Blood Cells % 0.1 %; Platelet Count (auto) 279 10^3/uL (140-450); Red Blood Cells 4.62 10^6/uL (4.0-5.20); White Blood Cell 3.6 10^3/uL (4.4-10.8)
[2024-11-01 19:44] LABS: Chloride 106 mmol/L (98-107); Potassium 3.7 mmol/L (3.5-5.1); Red Cell Distribution Width 27.4 % (11.8-14.3); Sodium 141 mmol/L (136-145)
[2024-11-01 19:45] LABS: Anion Gap 8 (5-15); Calcium 9.9 mg/dL (8.7-10.4); Carbon Dioxide 27 mmol/L (20-31)
[2024-11-01 19:50] LABS: BUN/Creatinine Ratio 22.6 (10.0-20.0); Blood Urea Nitrogen 14 mg/dL (9-23); Glucose 104 mg/dL (74-106)
[2024-11-01 19:55] LABS: INR 1.05 (0.9-1.15); Prothrombin Time 11.1 sec (9.3-11.8)
[2024-11-01 22:53] VITALS: BP 115/65; PULSE 53; RESP 18; TEMP 97.8; O2SAT 100
== END 2024-11-01 22:57 | disposition home or self-care (01) ==
LOC: ER 18:50
DX: K62.5 Hemorrhage of anus and rectum (principal); D64.9 Anemia, unspecified; K59.00 Constipation, unspecified; Z79.899 Other long term (current) drug therapy; Z88.0 Allergy status to penicillin
CPT/HCPCS: 36415; 80048; 85025; 85610